=== PATIENT | female | born 1985 | race Caucasian/White ===

== ENCOUNTER → 2025-03-11 | Outpatient (CLI) | payer OTHER, SELFPAY ==
--- NOTE | 2025-03-11 13:50 | BI_ITS ---
EXAM: DIAG MAMM W/CAD, BILAT 03/11/2025 CLINICAL HISTORY: F, Age 39 y/o , MASS UPPER OUTER QUAD LEFT BREAST TECHNIQUE: Bilateral Diagnostic digital breast tomosynthesis with 2D and 3D images. Computer aided detection. COMPARISON: Baseline study. FINDINGS: TISSUE DENSITY: The breast tissue is extremely dense which lowers the sensitivity of mammography. Bilateral Breast Mammographic Findings: No significant masses, calcifications or other abnormalities are identified. With the patient's history of a palpable lump in the upper-outer quadrant of the left breast, targeted sonographic correlation recommended. BI/DIAG MAMM W/CAD, BILAT IMPRESSION: No mammographic abnormality is seen. OVERALL FINAL ASSESSMENT BI-RADS 0: INCOMPLETE - NEED ADDITIONAL IMAGING EVALUATION. RECOMMENDATION: Targeted sonographic correlation of the upper-outer quadrant of the left breast recommended. A letter with findings and recommendations will be mailed to the patient. Reading Location: [place] [id number]
--- NOTE | 2025-03-11 14:42 | US_ITS ---
PROCEDURE: Upper-outer quadrant. 03/11/2025 REASON FOR EXAM: LEFT BREAST MASS TECHNIQUE: BREAST LIMITED UNILATERAL COMPARISON: Prior mammogram done earlier in the day.. FINDINGS: Left breast ultrasound was targeted to the . Dense fibroglandular tissue. There is a 2.2 cm 1.4 cm x 0.7 cm well-defined hypoechoic nodule with a central linear density suggestive of a benign-appearing lymph node at the 1 o'clock position of the breast at 3 cm from the nipple. US/Breast Limited Unilateral IMPRESSION: Impression: Findings suggestive of benign-appearing lymph node at the 1 o'clock position of the breast at 3 cm from the nipple. Birads: BI-RADS 2: BENIGN. RECOMMEND ANNUAL MAMMOGRAPHIC SCREENING. Reading Location: [place] [id number]
--- OUTSIDE RECORDS SUMMARY | 2025-03-11 14:56 | XMS RPT_ITS | CCD ---
Author Organization [facility] Care Team Providers Care [employer] Name Role Phone Neelam Hull Unavailable Unavailable PROVIDER, UNKNOWN Unavailable Unavailable Polo Ryan Unavailable Unavailable PROVIDER, UNKNOWN Unavailable Unavailable Polo Ryan Unavailable Unavailable JIN CUMMINS Unavailable Unavailable Polo Ryan Primary Care Provider Polo Ryan MD Primary Care Provider Unavailable Primary Care Provider UnavailPolo Strauss MD Primary Care Provider Polo Ryan MD Primary Care Provider Assessment, Health Risk Referring Unavaila ble Assessment, Health Risk Attending Unavaila ble Unavailable Primary Care Provider Unavailabl e POLO RYAN Attending Unavailable POLO RYAN Primary Care Unavailable RA LEONG Attending Unavailable POLO RYAN Primary Care Unavailable POLO RYAN Attending Unavailable POLO RYAN Primary Care Unavailable POLO RYAN Attending Unavailable POLO RYAN Primary Care Unavailable Medications Current Medications Medication Drug Class(es) Dates Sig (Normalized) Sig (Original) acetaminophen 325 mg / HYDROcodone bitartrate 5 mg oral tablet (1 source) Opioid Agonist Start: 12-04-2019 End: 12-15-2019 take 1 tablet by mouth every six hours as needed for pain, then take 1 tablet by mouth as needed for pain HYDROcodone-aceta minophen (NORCO) 5-325 MG per tablet Indications: Anal fistula Take 1 tablet by mouth every 6 hours as needed for Pain for up to 11 days. Intended supply: 5 days. Take lowest dose possible to manage pain 42 tablet 0 12/04/2019 12/15/2019 Active amoxicillin 500 mg oral capsule (2 sources) Penicillin-class Antibacterial Start: 10-30-2023 End: 11-09-2023 take 1 capsule by mouth twice daily amoxicillin (AMOXIL) 500 mg capsule Indications: Exudative tonsillitis Take 1 capsule by mouth two times a day for 10 days. 20 capsule 0 10/30/2023 11/09/2023 Active Start: 05-12-2022 End: 05-22-2022 take 1 capsule by mouth twice daily amoxicillin (POLYMOX, AMOXIL) 500 mg capsule Indications: Exudative pharyngitis Take 1 capsule by mouth twice daily for 10 days. 20 capsule 0 05/12/2022 05/22/2022 Active Comment on above: Take 1 capsule by mo [facility] twice daily for 10 days. Take 1 capsule by [facility] two times a day for 10 days. 1 ml diphenhydrAMINE hydrochloride 50 mg/ml cartridge (1 source) Histamine-1 Receptor Antagonist Start: 12-04-19 End: 12-04-19 diphenhydrAMINE (BENADRYL) injection 12.5 mg escitalopram 20 mg oral tablet (20 sources) Serotonin Reuptake Inhibitor Start: 08-23-20 End: 10-07-19 take 1 tablet by mouth once daily escitalopram (Lexapro) 20 MG tablet Take 1 tablet (20 mg) by mouth daily. 90 tablet 1 10/07/2024 Active Start: 11-02-2019 take 1 tablet by cece once daily escitalopram (LEXAPRO) 20 MG tablet TAKE ONE TABLET BY MOUTH EVERY DAY 90 tablet 0 11/02/2019 Suspended Comment on above: Take 1 tablet by cece th. 2 ml fentaNYL 0.05 mg/ml injection (2 sources) Opioid Agonist Start: 12-04-2019 fentaNYL (SUBLIMAZE) injection 25 mcg Start: 12-04-2019 fentaNYL (SUBL IMAZE) injection 50 mcg 1 ml hydrALAZINE hydrochloride 20 mg/ml injection (1 source) Arteriolar Vasodilator Start: 12-04-2019 hydrALAZINE (APRESOLINE) injection 5 mg 1 ml HYDROmorphone hydrochloride 1 mg/ml cartridge (2 sources) Opioid Agonist Start: 12-04-2019 HYDROmorphone (DILAUDID) injection 0.5 mg Start: 12-04-2019 HYDROmorphone (DILAUDID) injection 0.25 mg 4 ml labetalol hydrochloride 5 mg/ml cartridge (1 source) beta-Adrenergic Lili Start: 12-04-2019 labetalol (NORMODYNE;TRANDATE) injection 5 mg 10 ml lidocaine hydrochloride 10 mg/ml injection (1 source) Antiarrhythmic, Amide Local Anesthetic Start: 12-04-2019 End: 12-04-2019 lidocaine PF 1 % injection 1 mL 1 ml meperidine hydrochloride 25 mg/ml cartridge (1 source) Opioid Agonist Start: 12-04-2019 meperidine (DEMEROL) injection 12.5 mg ofloxacin 3 mg/ml ophthalmic solution (1 source) Quinolone Antimicrobial Start: 02-05-2024 End: 02-12-2024 ofloxacin (Ocuflox) 0.3 % ophthalmic solution Indications: Bacterial conjunctivitis of left eye Administer 1 drop into the left eye in the morning and 1 drop at noon and 1 drop in the evening and 1 drop before bedtime. Do all this for 7 days. 10 mL 0 02/05/2024 02/12/2024 Active oxyCODONE (1 source) Opioid Agonist Start: 12-04-2019 End: 12-04-2019 oxyCODONE (ROXICODONE) immediate release tablet 5 mg 1 ml promethazine hydrochloride 25 mg/ml injection (1 source) Phenothiazine Start: 12-04-2019 End: 12-04-2019 promethazine (PHENERGAN) injection 6.25 mg psyllium (METAMUCIL) 28 % packet (1 source) Start: 12-04-2019 End: 12-19-2019 take 1 dose by mouth twice daily psyllium (METAMUCIL) 28 % packet Take 1 packet by mouth 2 times daily for 15 days Take with full glass of h20 or juice 30 packet 0 12/04/2019 12/19/2019 Active 3 ml sodium chloride 9 mg/ml injection (2 sources) Start: 12-04-2019 sodium chloride flush 0.9 % injection 10 mL Completed/Discontinued Medications Medication Drug Class(es) Dates Sig (Normalized) Sig (Original) acetaminophen 325 mg oral tablet (4 sources) Start: 02-10-2021 take 2 tablets by mouth every six hours as needed for pain acetaminophen (TYLENOL) 325 MG tablet Take 2 tablets by mouth every 6 hours as needed for Pain 60 tablet 1 02/10/2021 Suspended Start: 02-08-2021 End: 02-11-2021 take 650 mg by mouth every six hours, then take 4000 mg by mouth every twenty-four hours 650 mg, Oral, EVERY 6 HOURS, First dose on Sat02/08/21 at 2245 Maximum dose of acetaminophen is 4000 mg from all sources in 24 hours. Start: 02-08-2021 End: 02-08-2021 take 650 mg by mouth every four hours as needed for pain, then take 4000 mg by mouth every twenty-four hours as needed for pain 650 mg, Oral, EVERY 4 HOURS PRN, Pain Mild (1-3), Fever, Fever >100.5 F (38 C), Starting on Sat02/08/21 at 0403 Maximum dose of acetaminophen is 4000 mg from all sources in 24 hours. Labor and Delivery Start: 12-04-2019 End: 12-04-2019 acetaminophen (TYLENOL) tabl et 1,000 mg ALPRAZolam 0.5 mg oral tablet (5 sources) Benzodiazepine Start: 10-24-2023 End: 10-07-2024 ALPRAZolam (Xanax) 0.5 MG tablet Indications: Anxiety 1 tablet 1 hour prior to flight 5 tablet 10/24/2023 10/07/2024 Discontinued (Therapy completed) benzocaine 200 mg/ml / menthol 5 mg/ml topical spray (1 source) Standardized Chemical Allergen Start: 02-08-2021 End: 02-11-2021 Topical, PRN, Pain, Starting on Sat02/08/21 at 2226 Apply to perineal area. Patient is capable and may self administer at bedside. calcium chloride 0.0014 meq/ml / potassium chloride 0.004 meq/ml / sodium chloride 0.103 meq/ml / sodium lactate 0.028 meq/ml injectable solution (2 sources) Start: 02-08-2021 End: 02-08-2021 Intravenous, at 125 mL/hr, CONTINUOUS, Starting on Sat02/08/21 at 0430, Labor and Delivery Start: 12-04-2019 lactated ringe rs infusion celecoxib 400 mg oral capsule (1 source) Nonsteroidal Anti-inflammatory Drug Start: 12-04-2019 End: 12-04-2019 celecoxib (CELEBREX) capsule 400 mg Start: 12-04-2019 End: 12-04-2019 celecoxib (CELEBREX) capsule 400 mg docusate sodium 100 mg oral capsule (2 sources) Start: 02-08-2021 End: 02-11-2021 take 1 capsule by mouth twice daily as needed for constipation docusate sodium (COLACE, DULCOLAX) 100 MG CAPS Take 100 mg by mouth 2 times daily as needed for Constipation 60 capsule 1 02/10/2021 Suspended famotidine 20 mg oral tablet (1 source) Histamine-2 Receptor Antagonist Start: 12-04-2019 End: 12-04-2019 famotidine (PEPCID) tablet 20 mg Start: 12-04-2019 End: 12-04-2019 famotidine (PEPCID) tablet 2 0 mg gabapentin 100 mg oral capsule (1 source) Anti-epileptic Agent Start: 12-04-2019 End: 12-04-2019 gabapentin (NEURONTIN) capsule 100 mg Start: 12-04-2019 End: 12-04-2019 gabapentin (NEURONTIN) capsu le 100 mg ibuprofen 600 mg oral tablet (5 sources) Nonsteroidal Anti-inflammatory Drug Start: 02-08-2021 End: 02-11-2021 take 1 tablet by mouth every six hours as needed for pain ibuprofen (ADVIL;MOTRIN) 600 MG tablet Take 1 tablet by mouth every 6 hours as needed for Pain 60 tablet 1 02/10/2021 Suspended Start: 02-08-2021 take 600 mg by mouth once 600 mg, Oral, ONCE, On Sat02/08/21 at 0430, For 1 dose IMMEDIATE . Do not crush or chew. DO NOT GIVE IBUPROFEN PRIOR TO DELIVERY. Post Delivery Start: 12-20-2018 take 1 tablet by cece th every six hours ibuprofen (ADVIL;MOTRIN) 600 MG tablet Take 1 tablet by mouth every 6 hours 120 tablet 3 12/20/2018 Suspended lanolin 1000 mg/ml topical cream (1 source) Start: 02-08-2021 End: 02-11-2021 Topical, PRN, Dry Skin, nipple discomfort, Starting on Sat02/08/21 at 2226, levothyroxine sodium 0.05 mg oral tablet (2 sources) l-Thyroxine Start: 06-28-2020 End: 02-11-2021 take 50 ug by mouth once daily 50 mcg, Oral, DAILY, First dose on Sat02/08/21 at 0600 Tube feeding (TF) interaction, obtain physician order to manage, recommend holding TF for 30 minutes before and after dose. 2 ml ondansetron 2 mg/ml injection (2 sources) Serotonin-3 Receptor Antagonist Start: 02-08-2021 End: 02-11-2021 4 mg, Intravenous, EVERY 6 HOURS PRN, Nausea, Starting on Sat02/08/21 at 2226, Start: 12-04-2019 End: 12-04-2019 ondansetron (ZOFRAN) injecti on 4 mg oxytocin (PITOCIN) 10 unit bolus from the bag (1 source) Start: 02-08-2021 End: 02-11-2021 500 mL (30 Units), Intraveno us, Administer over 75 Minutes, TITRATED, Starting on Sat02/08/21 at 1900 For Immediate Post Use Only. Give after delivery of placenta. Bag 1 of 2: Bolus for bag to infuse at 999 ml/hour for 15 minutes (15 units in 250cc). After initial bolus then decrease rate to 250cc/hr for 1 hour. Then discontinue. Multiphase Phase of Care oxytoxin (PITOCIN) 30 units in 500 mL infusion (1 source) Start: 02-08-2021 End: 02-08-2021 oxytoxin (PITOCIN) 30 units in 500 mL infusion Twvxka-TsBjb-Ttlgr -FA-DHA w/oA (VITAPEARL) 30-1.4-200 MG CPCR (2 sources) Start: 06-29-2018 take 1 tablet by mouth once daily Dnaifo-OmKvl-Hcgsl-FA-DHA w/oA (VITAPEARL) 30-1.4-200 MG CPCR Take 1 tablet by mouth nightly 06/29/2018 Suspended Start: 06-29-2018 take 1 tablet by cece th once daily Hyptmp-FnUdd-Cxnas-FA-DHA w/oA (VITAPEAR L) 30-1.4-200 MG CPCR Take 1 tablet by mouth nightly 06/29/2018 Active Vit-Fe Fumarate-FA ( VITAMIN) 27-0.8 MG TABS (1 source) Vit-Fe Fumarate-FA ( VITAMIN) 27-0.8 MG TABS Take 1 tablet by mouth 0 Suspended simethicone 80 mg chewable tablet (1 source) Start: 02-08-2021 End: 02-11-2021 take 80 mg by mouth every six hours as needed 80 mg, Oral, EVERY 6 HOURS PRN, Cramping, Flatulence, Starting on Sat02/08/21 at 2226, witch veornica 500 mg/ml medicated pad (1 source) Start: 02-08-2021 End: 02-11-2021 Topical, PRN, Hemorrhoids, For perineal pain or discomfort, Starting on Sat02/08/21 at 2226 Apply to perineal area. Patient is capable and may self administer at bedside. Problems Active Problems Problem Classification Problem Date Documented Da te Episodic/Chronic Abdominal pain (2 sources) Pelvic and perineal pain; Translations: [Pelvic and perineal pain] Onset: 11-23-2017 Acute and chronic tonsillitis (1 source) Tonsillitis; Translations: [Acute tonsillitis, unspecified] 10-30-2023 Episodic Anxiety disorders (20 sources) Anxiety disorder, unspecified; Translations: [Anxiety] Onset: 06-13-2015 06-13-2015 Chronic Disorders of lipid metabolism (20 sources) Hypercholesterolem ia; Translations: [Pure hypercholesterolem ia, unspecified] Onset: 03-29-2022 07-05-2022 Chronic Mood disorders (20 sources) Depressive disorder; Translations: [Major depressive disorder, single episode, unspecified] Onset: 06-13-2015 11-16-2019 Chronic Other endocrine disorders (2 sources) Polycystic ovarian syndrome; Translations: [Polycystic ovarian syndrome] Onset: 11-24-2017 Chronic Other nervous system disorders (2 sources) Other chronic pain; Translations: [Other chronic pain] Onset: 11-24-2017 Chronic Other nutritional; endocrine; and metabolic disorders (16 sources) Obese class I; Translations: [Obesity, unspecified] Onset: 08-31-2020 08-31-2020 Chronic Other nutritional; endocrine; and metabolic disorders (1 source) Body mass index 30+ - obesity; Translations: [Body mass index (BMI) 31.0-31.9, adult] Chronic Other nutritional; endocrine; and metabolic disorders (1 source) Obesity; Translations: [Obesity, unspecified] Chronic Other upper respiratory disease (1 source) Nasal congestion; Translations: [Nasal congestion] Episodic Other upper respiratory infections (3 sources) Exudative pharyngitis; Translations: [Acute pharyngitis, unspecified] Episodic Thyroid disorders (2 sources) Hypothyroidism; Translations: [Hypothyroidism, unspecified] Onset: 05-12-2022 05-12-2022 Chronic Unclassified (2 sources) Medication Check; Translations: [Medication Check] Onset: 10-10-2023 Unclassified (2 sources) Health Maintenance; Translations: [Health Maintenance] Onset: 10-10-2023 Past or Other Problems Problem Classification Problem Date Documented Date Episodic/Chronic Administrative/social admission (2 sources) Conceived by in vitro fertilization; Translations: [ resulting from in vitro fertilization in second trimester] Onset: 08-04-2018 Resolved: 12-18-2018 12-18-2018 Anal and rectal conditions (20 sources) Anal abscess; Translations: [Other specified diseases of anus and rectum] Onset: 11-24-2017 Resolved: 12-18-2018 12-18-2018 Episodic Hemorrhoids (2 sources) Unspecified hemorrhoids; Translations: [Unspecified hemorrhoids] Onset: 11-23-2017 Episodic Hypertension complicating ; childbirth and the puerperium (3 sources) Transient hypertension of - not delivered; Translations: [Gestational [-induced] hypertension without significant proteinuria, third trimester] Resolved: 12-20-2018 12-20-2018 Episodic Inflammation; infection of eye (except that caused by tuberculosis or sexually transmitteddisease) (3 sources) Conjunctivitis of left eye caused by bacteria; Translations: [Unspecified conjunctivitis] Onset: 02-05-2024 02-05-2024 Episodic Mood disorders (14 sources) Major depressive disorder, single episode, unspecified; Translations: [Mood disorders] Onset: 04-01-2023 Resolved: 10-07-2024 04-01-2023 Other complications of ; puerperium affecting management of mother (3 sources) Indication for care AND/OR intervention in labor AND/OR delivery; Translations: [Complication of labor and delivery, unspecified] Onset: 12-17-2018 Resolved: 12-20-2018 12-20-2018 Episodic Other complications of (1 source) Conceived by in vitro fertilization; Translations: [Supervision of resulting from assisted reproductive technology, second trimester] Onset: 08-04-2018 Resolved: 12-18-2018 12-18-2018 Episodic Other and delivery including normal (4 sources) Vaginal delivery; Translations: [Encounter for full-term uncomplicated delivery] Onset: 12-18-2018 Resolved: 01-20-2020 12-18-2018 Episodic Other screening for suspected conditions (not mental disorders or infectious disease) (8 sources) Patient encounter status; Translations: [Encounter for other specified screening] Onset: 08-04-2018 Resolved: 12-18-2018 12-18-2018 Episodic Other skin disorders (2 sources) Localized swelling, mass and lump, trunk; Translations: [Localized swelling, mass and lump, trunk] Onset: 11-23-2017 Episodic Polyhydramnios and other problems of amniotic cavity (3 sources) Amniotic fluid leaking; Translations: [Premature rupture of membranes, unspecified as to length of time between rupture and onset of labor, unspecified weeks of gestation] Resolved: 12-20-2018 12-20-2018 Episodic Screening or history of mental health and substance abuse (2 sources) Personal history of nicotine dependence; Translations: [Personal history of nicotine dependence] Onset: 11-23-2017 Episodic Spondylosis; intervertebral disc disorders; other back problems (2 sources) Dorsalgia, unspecified; Translations: [Dorsalgia, unspecified] Onset: 11-24-2017 Episodic Unclassified (2 sources) Patient encounter status; Translations: [Encounter for anatomic survey] Onset: 08-04-2018 Resolved: 12-18-2018 12-18-2018 Results Test Name Value Interpretation Reference Range Facility Office Visiton 10-07-2024 Follow-up visit [id number] Sasha Jackson 1985 F Date Provider Department Center 10/07/2024 [id number] Family History Problem Relation Age of Onset Depression Mother High Blood Pressure Father Alcohol abuse Father Diabetes Maternal Grandfather Depression Maternal Grandmother Diabetes Maternal Grandmother Colon cancer Brother Family Status - Relation Status Age at Mother Alive Father Maternal Grandfather Maternal Grandmother Brother Level of Service:41356 [place] OFFICE/OUTPATIENT ESTABLISHED LOW MDM 20 MIN Reason for Visit and Comments: Anxiety [9] Depression [32] Hyperlipidemia [182] Medication Check [[id number]] - 6 month Health Maintenance [872] - Pap- 01/[address] Priscila Bustam[facility] Letter for School/Work [[id number]] - Stating pt is ok to work Normal [facility] Progress Noteon 10-07-2024 Progress Note Stable, diet controlled Normal [facility] Progress Note Remission, continue Lexapro 20 mg daily Normal [facility] Progress Note Remission, continue Lexapro 20 mg daily Normal [facility] Progress Note Patient verified by last name and date of . Normal [facility] Progress Note 10/07/2024 Susu Jackson (: 1985) is a 38 y.o. female , Established patient, here for evaluation of the following chief complaint(s): Anxiety, Depression, Hyperlipidemia, Medication Check (6 month), Health Maintenance (Pap- 01/[address] Priscila Bust[facility]ante [facility] ), and Letter for School/Work (Stating pt is ok to work ) ASSESSMENT/PLAN: 1. Recurrent major depressive disorder, in full remission (HCC) Assessment & Plan: Remission, continue Lexapro 20 mg daily 2. Anxiety Assessment & Plan: Remission, continue Lexapro 20 mg daily 3. Hypercholesterolemia Assessment & Plan: Stable, diet controlled Follow up in about 6 months (around 04/06/2025) for annual. SUBJECTIVE/OBJECTIVE: LOUISE Oneal comes in today for 6-month follow-up on her anxiety and depression she says she is doing very well on her current dose of Lexapro and she is not using her alprazolam anymore. She has a history of hypercholesterolemia but she has never been on medication. She also has starting a new as needed job and she needs another stating that she was examined in his disease-free and can do the job of the [employer]. Review of Systems Constitutional: Negative for chills and fever. Respiratory: Negative for shortness of breath. Cardiovascular: Negative for chest pain and palpitations. Gastrointestinal: Negative for abdominal pain, blood in stool, constipation and diarrhea. Genitourinary: Negative for dyspareunia, dysuria, frequency, hematuria and urgency. Neurological: Negative for weakness and numbness. Psychiatric/Behavioral: Negative for dysphoric mood. The patient is not nervous/anxious. Vitals: 10/07/24 1314 BP: 108/74 Pulse: 95 SpO2: 98% Weight: 211 lb (95.7 kg) Height: 5' 6 (1.676 m) Physical Exam Vitals and nursing note reviewed. Constitutional: General: She is not in acute distress. Appearance: Normal appearance. HENT: Head: Normocephalic. Right Ear: Tympanic membrane, ear canal and external ear normal. Left Ear: Tympanic membrane, ear canal and external ear normal. Mouth/Throat: Mouth: Mucous membranes are moist. Pharynx: Oropharynx is clear. Eyes: Extraocular Movements: Extraocular movements intact. Pupils: Pupils are equal, round, and reactive to light. Neck: Thyroid: No thyromegaly. Cardiovascular: Rate and Rhythm: Normal rate and regular rhythm. Heart sounds: Normal heart sounds. No murmur heard. Pulmonary: Effort: Pulmonary effort is normal. Breath sounds: Normal breath sounds. Abdominal: General: Bowel sounds are normal. Palpations: Abdomen is soft. Musculoskeletal: General: Normal range of motion. Cervical back: Normal range of motion. Lymphadenopathy: Cervical: No cervical adenopathy. Skin: General: Skin is warm and dry. Neurological: General: No focal deficit present. Mental Status: She is alert and oriented to person, place, and time. Psychiatric: Mood and Affect: Mood normal. An electronic signature was used to authenticate this note. Polo Ryan MD 10/07/2024 2:41 PM [facility] 36on 10-06-2024 36 lm to pre-visit plan for appointment with Dr Ryan on 10/07/24 1:30. Please ask patient to arrive 15 minutes early with Photo ID, insurance card Fasting: no Put call through to office for pvp [facility] 36on 04-20-2024 36 The STACY that we have scanned in on 10/10/23 was accidentally dated 10/10/22. I called Susu, she will come in to sign a new one. [facility] 36 Name of caller: Shraddha nicole Contact phone number: [phone] Relationship to Patient: [facility] Provider: Dr. Ryan Practice: [facility] Chief Complaint/Reason for Call: Arron called in to notify office they received a records request for patient's pap results but the release is from 2022. States they will need a new updated release sent over. Please Advise Best time of day caller can be reached: any Patient advised that office/PCP has 24-48 business hours to return their call: No [facility] Office Visiton 04-08-2024 Follow-up visit [id number] Sasha Jackson 1985 F Date Provider Department Center 04/08/2024 [id number] RYANBENYFaith [facility] Family History Problem Relation Age of Onset Depression Mother High Blood Pressure Father Alcohol abuse Father Diabetes Maternal Grandfather Depression Maternal Grandmother Diabetes Maternal Grandmother Colon cancer Brother Family Status - Relation Status Age at Mother Alive Father Maternal Grandfather Maternal Grandmother Brother Level of Service:61064 [place] PERIODIC PREVENTIVE MED EST PATIENT 18-39 YRS Reason for Visit and Comments: Annual Exam [83] Health Maintenance [872] - HIV/HEP C-declined DM SCREEN-today HEP B VAC-today COVID VAC-completed PHQ/HECTOR-completed PAP-completed at [facility] Progress Noteon 04-08-2024 Progress Note 5 pound weight loss, encouraged to continue with diet and exercise [facility] Progress Note Controlled, continue very strict low-fat low-cholesterol diet [facility] Progress Note Remission, continue Lexapro 20 mg daily [facility] Progress Note Remission, continue Lexapro 20 mg daily [facility] Progress Note PHQ/HECTOR MESSAGED VIA [facility] Health Maintenance Addressed with Patient at Visit: HIV/HEP C-declined DM SCREEN-today HEP B VAC-today COVID VAC-completed PHQ/HECTOR-completed PAP-completed 01/21/2024 at [facility] Progress Note 04/08/2024 Susu Jackson (: 1985) is a 38 y.o. female , Established patient, here for evaluation of the following chief complaint(s): Annual Exam and Health Maintenance (HIV/HEP C-declined/DM SCREEN-today/HEP B VAC-today/COVID VAC-completed/PHQ/HECTOR-co mpleted/PAP-completed at [facility]/) ASSESSMENT/PLAN: 1. Annual physical exam 2. Recurrent major depressive disorder, in full remission (HCC) Assessment & Plan: Remission, continue Lexapro 20 mg daily 3. Anxiety Assessment & Plan: Remission, continue Lexapro 20 mg daily 4. Hypercholesterolemia Assessment & Plan: Controlled, continue very strict low-fat low-cholesterol diet Orders: - Lipid panel 5. Class 1 obesity Assessment & Plan: 5 pound weight loss, encouraged to continue with diet and exercise 6. Screening for diabetes mellitus - Comprehensive metabolic panel Follow up in about 6 months (around 10/09/2024). SUBJECTIVE/OBJECTIVE: HPI Jm comes in today for her annual exam, she gets her well female exams done at her [employer]. Is also here for follow-up on her depression and anxiety which both seem to be in remission and her hyperlipidemia and we need to get updated lab work today. Review of Systems Constitutional: Negative for chills and fever. Respiratory: Negative for shortness of breath. Cardiovascular: Negative for chest pain and palpitations. Gastrointestinal: Negative for abdominal pain, blood in stool, constipation and diarrhea. Genitourinary: Negative for dyspareunia, dysuria, frequency, hematuria and urgency. Neurological: Negative for weakness and numbness. Psychiatric/Behavioral: Negative for dysphoric mood. The patient is not nervous/anxious. Vitals: 04/08/24 0826 BP: 127/83 Pulse: 81 Resp: 16 SpO2: 96% Weight: 217 lb (98.4 kg) Height: 5' 6 (1.676 m) Physical Exam Vitals and nursing note reviewed. Constitutional: General: She is not in acute distress. Appearance: Normal appearance. HENT: Head: Normocephalic. Right Ear: Tympanic membrane, ear canal and external ear normal. Left Ear: Tympanic membrane, ear canal and external ear normal. Mouth/Throat: Mouth: Mucous membranes are moist. Pharynx: Oropharynx is clear. Eyes: Extraocular Movements: Extraocular movements intact. Pupils: Pupils are equal, round, and reactive to light. Neck: Thyroid: No thyromegaly. Cardiovascular: Rate and Rhythm: Normal rate and regular rhythm. Heart sounds: Normal heart sounds. No murmur heard. Pulmonary: Effort: Pulmonary effort is normal. Breath sounds: Normal breath sounds. Abdominal: General: Bowel sounds are normal. Palpations: Abdomen is soft. Musculoskeletal: General: Normal range of motion. Cervical back: Normal range of motion. Lymphadenopathy: Cervical: No cervical adenopathy. Skin: General: Skin is warm and dry. Neurological: General: No focal deficit present. Mental Status: She is alert and oriented to person, place, and time. Psychiatric: Mood and Affect: Mood normal. An electronic signature was used to authenticate this note. Polo Ryan MD 04/08/2024 9:06 AM [facility] 36on 02-05-2024 36 S: Patient spoke wit h [facility] nurse regarding lt eye red with drainage B: Onset of symptoms/concern this morning A: patient states drainage is thick and yellow and the eye is painful. Patient denies fever, sore throat. She reports she has some runny nose and that her 3 year old has pink eye. R: Appt scheduled this morning with Ra. Patient advised of gently cleaning the eye and not sharing of towel. Patient understands care advice. No further needs at this time. Patient instructed to call back with new or worsening symptoms. Reason for Disposition Eye with yellow or green discharge or eyelashes stick together, but NO standing order to call in antibiotic eye drops (Exception: Alecia; continue triage.) Protocols used: Eye - Pus or [id number] [facility] Office Visiton 02-05-2024 Follow-up visit [id number] ManuelSasha Nicole 1985 F Date Provider Department Center 02/05/2024 [id number] LEONG [facility] Family History Problem Relation Age of Onset Depression Mother High Blood Pressure Father Alcohol abuse Father Diabetes Maternal Grandfather Depression Maternal Grandmother Diabetes Maternal Grandmother Colon cancer Brother Family Status - Relation Status Age at Mother Alive Father Maternal Grandfather Maternal Grandmother Brother Level of Service:17808 LA OFFICE/OUTPATIENT ESTABLISHED LOW MDM 20 MIN Reason for Visit and Comments: Eye Drainage [790482] - Thinks it is pink eye daughter recently had pink eye. Started Saturday. [facility] Progress Noteon 02-05-2024 Progress Note Patient verified by last name and . [facility] Progress Note 02/05/2024 Susu Jackson (: 1985) is a 38 y.o. female , Established patient, here for evaluation of the following chief complaint(s): Eye Drainage (Thinks it is pink eye daughter recently had pink eye. Started Saturday. ) ASSESSMENT/PLAN: 1. Bacterial conjunctivitis of left eye - ofloxacin (Ocuflox) 0.3 % ophthalmic solution; Administer 1 drop into the left eye in the morning and 1 drop at noon and 1 drop in the evening and 1 drop before bedtime. Do all this for 7 days., Starting Sat02/05/2024, Until Sat02/12/2024, Normal - Should be seen immediately by ophthalmology if severe eye pain, swelling, or visual disturbances occur. - Instructed to apply fresh, clean pillow cases, use good eye hygiene (separate rags for each eye), avoid touching eyes, wash hands frequently, and avoid use of eye makeup until symptoms improve. - Discussed signs and symptoms warranting follow up in the office- verbalized understanding. Follow up in 9 weeks (on 04/08/2024) for Next scheduled follow-up. SUBJECTIVE/OBJECTIVE: LOUISE Cristobal presents today with concerns of her left eye being red and experiencing yellow, thick drainage. Eye was crusted shut this morning. Symptoms started this morning and her 3 year old currently has pink eye. Denies recent trauma to the area. Does not wear contact lenses. Review of Systems Constitutional: Negative for chills and fever. HENT: Negative for ear pain and rhinorrhea. Eyes: Positive for discharge and redness. Respiratory: Negative for chest tightness, shortness of breath and wheezing. Cardiovascular: Negative for chest pain. Vitals: 02/05/24 1124 02/05/24 1135 BP: (!) 138/92 118/72 Pulse: 84 SpO2: 98% Weight: 223 lb 6.4 oz (101 kg) Height: 5' 6 (1.676 m) Body mass index is 36.06 kg/m?. Physical Exam Constitutional: General: She is not in acute distress. Appearance: She is not ill-appearing. HENT: Head: Normocephalic and atraumatic. Eyes: General: Left eye: Discharge (yellow) present. Conjunctiva/sclera: Left eye: Left conjunctiva is injected. Pulmonary: Effort: Pulmonary effort is normal. Neurological: Mental Status: She is alert. An electronic signature was used to authenticate this note. Ra Leong APRN - MONICA 02/05/2024 11:58 AM [facility] CNOVon 10-30-2023 CNOV Office Visit (WALKWA ) -------- SUSU JACKSON ([id number]) 1985 F Date Time Provider Department 10/30/23 12:40 PM OCTAVIO SCHAEFFER During your visit today, we recorded the following information about you: Temperature Pulse Blood pressure Weight 97.9 degrees 84/minute 104/81 100.7 kg Octavio Schaeffer APRN.PRINTED CIRCUIT BOARD DESIGNER 10/30/2023 1:23 PM Signed This note was created using BigFix[employer]. Subjective Susu Jackson is a 37 year old female. HPI by patient: Susu is a 36 year old presenting to the office with the complaint of sore throat Started approximately Associated symptoms include sore throat on R side, white spots on R tonsil (has tonsil stones), congestion, PND Denies any other concerns Covid Immunization Dates Overdue - Covid-19 Vaccine ( season) Overdue since 05/24/2023 04/14/2021 Imm Admin: COVID-19 original vaccine, age 12+ yr, monovalent (PFIZER-BIONTECH - PURPLE TOP) 03/18/2021 Imm Admin: COVID-19 original vaccine, age 12+ yr, monovalent (PFIZER-BIONTECH - PURPLE TOP) Sick contacts: no Smoking history/second hand smoke: no OTC nothing No antibiotic use in the last 60 days. ALLERGIES No Known Allergies No family history on file. Review of Systems Constitutional: Negative for chills and fever. HENT: Positive for postnasal drip and sore throat. Negative for congestion, ear pain and rhinorrhea. Respiratory: Negative for cough. Cardiovascular: Negative for chest pain. Allergic/Immunologic: Negative for immunocompromised state. Hematological: Negative for adenopathy. Objective BP 104/81 Pulse 84 Temp 36.6 ?C (97.9 ?F) Wt 100.7 kg (221 lb 14.3 oz) SpO2 99% BMI 35.81 kg/m? Physical Exam Vitals and nursing note reviewed. HENT: Right Ear: Tympanic membrane and ear canal normal. Left Ear: Tympanic membrane and ear canal normal. Nose: Congestion present. Mouth/Throat: Pharynx: Uvula midline. Posterior oropharyngeal erythema present. Tonsils: Tonsillar exudate present. Cardiovascular: Rate and Rhythm: Normal rate and regular rhythm. Heart sounds: Normal heart sounds. Pulmonary: Effort: Pulmonary effort is normal. Breath sounds: Normal breath sounds. Lymphadenopathy: Cervical: No cervical adenopathy. Skin: General: Skin is warm and dry. Neurological: Mental Status: She is alert and oriented to person, place, and time. Assessment and Plan ASSESSMENT/PLAN: 1. Exudative tonsillitis - ICD9: 463, ICD10: J03.90 (primary diagnosis) - Please see ENT for tonsil stones 2. Viral URI - ICD9: 465.9, ICD10: J06.9 - Discussed viral etiology and rationale for treatment. - Symptomatic treatment with prn analgesia - Supportive care with fluids and rest Octavio Schaeffer APRN.CNP Medical Decision Making: Problems: Moderate: New problem with uncertain prognosis Data: Unique source(s) for external note(s) reviewed: 1 Unique test(s) ordered: 1 Risk: Moderate: Drug management Medical Decision Making Level: 4 - Moderate Octavio Schaeffer APRN.CNP 10/30/2023 1:11 PM Signed -------- UPPER RESPIRATORY INFECTIONS Most cases are caused by viruses and most cases are mild, temporary, and harmless. Symptoms can last 2 to 3 weeks and can include: nasal congestion, sore throat, coughing, muscles aches, headaches, nausea, diarrhea, fatigue and fever. 1. Drink plenty of fluids. 2. Get lots of rest. 3. Avoid dehydrants such as caffeine and alcohol. 4. Nasal saline is an effective decongestant and be used frequently throughout the day. 5. To loosen phlegm and help coughing, drink plenty of fluids and using a humidifier. 6. For sore throats, it is ok to use cough drops, throat sprays, or gargling warm salt water. 7. Always cover your mouth when you cough or sneeze, and wash your hands frequently. Avoid crowded areas like shopping centers, movies while you are sick so you don't shredder picker a different virus, or infect others. 8. Avoid exposure to cigarettes or fumes. 9. Avoid irritants such as potpourri, dust, perfumes, scented candles and scented sprays 10. Air conditioning is an effective allergen and irritant avoidance strategy in the spring, summer and fall. 11. Honey is an effective cough suppressant. Try one tsp two to three times per day. 12. Mucinex every 12 hours with a full 10-12 ounces of water The below information is from [employer]: Antibiotics will rarely help an upper respiratory infections. Antibiotics lead to more resistant infections that are harder to treat. There is little to no benefit to taking antibiotics for most acute upper respiratory tract infections. Allergies As of Date: 10/30/2023 (No Known Allergies) Date Reviewed: 10/30/2023 Reviewed by: Charmaine Wilde MA - Fully Assessed Reason for Visit: Sore Throat (more content not included)... Normal [facility] STREP A MOLECULAR (POC)on Procedural Control Valid [facility] Strep A (POCT) Negative Negative [facility] Office Visiton 10-10-2023 Follow-up visit [id number] Sasha Jackson 1985 F Date Provider Department Center 10/10/2023 [id number] Family History Problem Relation Age of Onset Depression Mother High Blood Pressure Father Alcohol abuse Father Diabetes Maternal Grandfather Depression Maternal Grandmother Diabetes Maternal Grandmother Colon cancer Brother Family Status - Relation Status Age at Mother Alive Father Maternal Grandfather Maternal Grandmother Brother Level of Service:61445 LA OFFICE/OUTPATIENT ESTABLISHED LOW MDM 20 MIN Reason for Visit and Comments: Anxiety [9] Depression [32] Hyperlipidemia [182] Medication Check [5895145664] - 6 month Health Maintenance [872] - Hiv/hep c screening- refuse 3rd covid vaccine- not done Normal [facility] Progress Noteon 10-10-2023 Progress Note Controlled, continue low-fat low-cholesterol diet Normal [facility] Progress Note Remission, continue Lexapro 20 mg daily Normal [facility] Progress Note Remission, continue Lexapro 20 mg daily Normal [facility] Progress Note 10/10/2023 Susu Jackson (: 1985) is a 37 y.o. female , Established patient, here for evaluation of the following chief complaint(s): Anxiety, Depression, Hyperlipidemia, Medication Check (6 month), and Health Maintenance (Hiv/hep c screening- refuse/3rd covid vaccine- not done) ASSESSMENT/PLAN: 1. Recurrent major depressive disorder, in full remission (HCC) Assessment & Plan: Remission, continue Lexapro 20 mg daily 2. Anxiety Assessment & Plan: Remission, continue Lexapro 20 mg daily 3. Hypercholesterolemia Assessment & Plan: Controlled, continue low-fat low-cholesterol diet Follow up in about 6 months (around 04/09/2024). SUBJECTIVE/OBJECTIVE: LOUISE Oneal comes in today for 6-month follow-up on her anxiety and depression, she actually is doing very well she denies any problems. We also reviewed her labs from 6 months ago and her cholesterol was actually very good. Review of Systems Constitutional: Negative for chills and fever. Respiratory: Negative for shortness of breath. Cardiovascular: Negative for chest pain and palpitations. Gastrointestinal: Negative for abdominal pain, blood in stool, constipation and diarrhea. Genitourinary: Negative for dysuria, frequency, hematuria and urgency. Neurological: Negative for weakness and numbness. Psychiatric/Behavioral: Negative for dysphoric mood. The patient is not nervous/anxious. Vitals: 10/10/23 1309 BP: 88/60 Pulse: 83 SpO2: 98% Weight: 222 lb (101 kg) Height: 5' 6 (1.676 m) Physical Exam Vitals and nursing note reviewed. Constitutional: General: She is not in acute distress. Appearance: Normal appearance. HENT: Head: Normocephalic. Right Ear: Tympanic membrane, ear canal and external ear normal. Left Ear: Tympanic membrane, ear canal and external ear normal. Mouth/Throat: Mouth: Mucous membranes are moist. Pharynx: Oropharynx is clear. Eyes: Extraocular Movements: Extraocular movements intact. Pupils: Pupils are equal, round, and reactive to light. Cardiovascular: Rate and Rhythm: Normal rate and regular rhythm. Heart sounds: Normal heart sounds. No murmur heard. Pulmonary: Effort: Pulmonary effort is normal. Breath sounds: Normal breath sounds. Abdominal: General: Bowel sounds are normal. Palpations: Abdomen is soft. Musculoskeletal: General: Normal range of motion. Cervical back: Normal range of motion. Lymphadenopathy: Cervical: No cervical adenopathy. Skin: General: Skin is warm and dry. Neurological: General: No focal deficit present. Mental Status: She is alert and oriented to person, place, and time. Psychiatric: Mood and Affect: Mood normal. An electronic signature was used to authenticate this note. Polo Ryan MD 10/10/2023 1:38 PM Normal [facility] Progress Note Patient verified by last name and date of . Normal [facility] CBCOrdered By: Padmini Baker on 02-08-2021 Hematocrit (Bld) [Volume fraction] 39.4 % 35.0 - 47.0 % [facility] Phone: [phone] Hemoglobin.gastrointes tinal spec 1 Ql (Stl) 13.6 g/dL 11.7 - 16.0 g/dL [facility] Work Phone: [phone] Interpretation and review of laboratory results Abnormal [facility] Work Phone: [phone] MCH (RBC) [Entitic mass] 32.1 pg 26.0 - 34.0 pg [facility] Work Phone: [phone] MCHC (RBC) [Mass/Vol] 34.5 % 32.0 - 36.0 % [facility] Work Phone: [phone] MCV (RBC) [Entitic vol] 93.0 fL 79.0 - 98.0 fL [facility] Work Phone: [phone] Platelet distribution width (Bld) [Ratio] 13.7 % 11.5 - 14.5 % [facility] Work Phone: [phone] Platelet mean volume (Bld) [Entitic vol] 9.1 fL 7.4 - 10.4 fL [employer] Work Phone: [phone] Platelets (Bld) [#/Vol] 174 10*3/uL 140 - 440 10*3/uL [employer] Work Phone: [phone] RBC (Bld) [#/Vol] 4.23 10*6/uL 3.80 - 5.2 0 10*6/uL [employer] Work Phone: [phone] WBC (Bld) [#/Vol] 12.7 10*3/uL High 3.6 - 10.7 10*3/uL [employer] Work Phone: [phone] Test Performed by [facility], [address] [place] [id number] [facility] Work Phone: [phone] [facility] Work Phone: [phone] Hemogramon 02-08-2021 Erythrocyte distribution width (RBC) [Ratio] 13.7 % Normal 11.5-14.5 [facility] Comment on above: Performed By: #### H EMOG #### [facility] [employer] [address] Hematocrit (Bld) [Volume fraction] 39.4 % Normal 35.0-47.0 [facility] Comment on above: Performed By: #### H EMOG #### [address] Hemoglobin (Bld) [Mass/Vol] 13.6 g/dL Normal 11.7-16.0 [facility] Comment on above: Performed By: #### H EMOG #### [address] MCH (RBC) [Entitic mass] 32.1 pg Normal 26.0-34.0 [facility] Comment on above: Performed By: #### H EMOG #### [address] MCHC 34.5 % Normal 32.0-36.0 [facility] Comment on above: Performed By: #### H EMOG #### [facility] [address] [place] [address] MCV (RBC) [Entitic vol] 93.0 fL Normal 79.0-98.0 [facility] Comment on above: Performed By: #### H EMOG #### [address] [place] [address] Platelet mean volume (Bld) [Entitic vol] 9.1 fL Normal 7.4-10.4 [facility] Comment on above: Performed By: #### H EMOG #### [address] [place] [address] Platelets (Bld) [#/Vol] 174 10*3/uL Normal 140-440 [facility] Comment on above: Performed By: #### H EMOG #### [address] [address] [place] [address] RBC (Bld) [#/Vol] 4.23 10*6/uL Normal 3.80-5.20 [facility] Comment on above: Performed By: #### H EMOG #### [address] [address] [place] [address] WBC (Bld) [#/Vol] 12.7 10*3/uL High 3.6-10.7 [facility] Comment on above: Performed By: #### H EMOG #### [address] [address] [place] [address] TS GELon 02-08-2021 TS GEL ABO Group: O Rh, Gel: POS Antibody Screen Gel: NEG Normal [facility] Comment on above: Performed By: #### T SGL #### [facility] TYPE AND SCREENOrdered By: Cailin Baker on 02-08-2021 ABO Grouping O [facility] Work Phone: [phone] Rh Type Positive [facility] Work Phone: [phone] Test Performed by [facility], [address] [place] [address] [facility] Work Phone: [phone] [facility] Work Phone: [phone] GBS, External ResultOrdered By: Historical Provider on 01-17-2021 GBS, External Result Positive [facility] Work Phone: [phone] Labs confirmed with Sebastian Suarez RN [facility] Work Phone: [phone] [facility] Work Phone: [phone] ABO, External ResultOrdered By: Historical Provider on 07-18-2020 ABO, External Result O [facility] Work Phone: [phone] C. Trachomatis, External Res ultOrdered By: Historical Provider on 07-18-2020 C. Trachomatis, External Result Negative [facility] Work Phone: [phone] GBS, External ResultOrdered By: Historical Provider on 07-18-2020 GBS, External Result Positive [facility] Work Phone: [phone] HIV, External ResultOrdered By: Historical Provider on 07-18-2020 HIV, External Result Negative [facility] Work Phone: [phone] Hepatitis B, External Result Ordered By: Historical Provider on 07-18-2020 Hep B, External Result Negative [employer] Work Phone: [phone] N. Gonorrhoeae, External Res ultOrdered By: Historical Provider on 07-18-2020 N. Gonorrhoeae, External Result Negative [facility] Work Phone: [phone] No Panel InformationOrdered By: Historical Provider on 07-18-2020 [facility] Work Phone: [phone] [facility] Work Phone: [phone] RPR, External LabOrdered By: Historical Provider on 07-18-2020 RPR, External Result Non-Reactive [employer] Work Phone: [phone] Rh Factor, External ResultOr dered By: Historical Provider on 07-18-2020 Rh Factor, External Result Positive [facility] Work Phone: [phone] Rubella Titer, External Resu ltOrdered By: Historical Provider on 07-18-2020 Rubella Titer, External Result immune [facility] Work Phone: [phone] , urineon 0 Beta HCG ( test) Ql (U) Negative Negative NA [facility] [place], [place] Comment on above: is the mos t common reason for HCG in urine, although choriocarcinoma, hydatidiform mole, and certain nontropho- blastic malignancies also result in detectable urinary HCG levels. Sensitivity = 20mIU/mL. Test Performed by [facility], [address] [place] [id number] [place], [place] CT Abdomen/Pelvis w/ Contras ton 11-23-2017 CT Abdomen/Pelvis w/ Contrast Patient Name: SUSU JACKSON CT Exam Date/Time 11/23/2017 18:43:[address] Abdomen/Pelvis w/ IV Contrast (IV Onl Ordering Physician MD ARUNA, NEELAM Accession Number [id number] CPT4 Codes 34885 (CT Abdomen/Pelvis w/ IV Contrast (IV Onl), Q9967 () Reason For Exam ABSCESS, PELVIS Report HISTORY: Pain and pressure between labia and anus After oral and intravenous contrast sections performed through the abdomen and pelvis. Just included sections of lung bases are negative. Sections through the abdomen show no abnormality. Sections through the pelvis show what appears to be normal appendix. The uterus is normal in size. Both ovaries appear unremarkable with 2.3 cm cyst on the left. Full urinary bladder. Lumbar spine appears unremarkable. IMPRESSION: Question of a developing 2 cm possible superficial abscess in the perineum anterior to the anus Report Dictated on Final Dictating Physician: MD PRATER WILLIAM Signed Date and Time: 11/23/2017 7:02 pm Signed by: MD PRATER WILLIAM Transcribed Date and Time: 11/23/2017 7:03 Normal [facility] Vital Signs Date Time Vital Sign Value Performing Clinician Facility 10-07-2024 13:14-0500 Body height 167.6 cm Polo Ryan MD Work Phone: [facility] 10-07-2024 13:14-0500 Body mass index (BMI) [Ratio] 34.06 kg/m2 Polo Ryan MD Work Phone: [facility] 10-07-2024 13:14-0500 Body weight 95.71 kg Polo Ryan MD Work Phone: [facility] 10-07-2024 13:14-0500 Diastolic blood pressure 74 mm[Hg] Polo Ryan MD Work Phone: [employer] 10-07-2024 13:14-0500 Heart rate 95 /min Polo Ryan MD Work Phone: [facility] [employer] 10-07-2024 13:14-0500 SaO2% (BldA) [Mass fraction] 98 % Polo Ryan MD Work Phone: [facility] 10-07-2024 13:14-0500 Systolic blood pressure 108 mm[Hg] Polo Ryan MD Work Phone: [facility] [employer] 04-08-2024 08:26-0400 Body height 167.6 cm Polo Ryan MD Work Phone: [facility] [employer] 04-08-2024 08:26-0400 Body mass index (BMI) [Ratio] 35.02 kg/m2 Polo Ryan MD Work Phone: [facility] [employer] 04-08-2024 08:26-0400 Body weight 98.43 kg Polo Ryan MD Work Phone: [facility] 04-08-2024 08:26-0400 Diastolic blood pressure 83 mm[Hg] Polo Ryan MD Work Phone: [employer] [facility] [employer] 04-08-2024 08:26-0400 Heart rate 81 /min Polo Ryan MD Work Phone: [facility] [employer] 04-08-2024 08:26-0400 Respiratory rate 16 /min Polo Ryan MD Work Phone: [employer] [facility] [employer] 04-08-2024 08:26-0400 SaO2% (BldA) [Mass fraction] 96 % Polo Ryan MD Work Phone: [facility] [employer] 04-08-2024 08:26-0400 Systolic blood pressure 127 mm[Hg] Polo Ryan MD Work Phone: [facility] [employer] 02-05-2024 11:35-0400 Diastolic blood pressure 72 mm[Hg] Ra Kirby [employer] W[employer]ER - PRINTED [employer] BOARD DESIGNER Work Phone: [facility] [employer] 02-05-2024 11:35-0400 Systolic blood pressure 118 mm[Hg] Ra Leong [employer] W[employer]ER - [employer] BOARD DESIGNER Work Phone: [facility] 02-05-2024 11:24-0400 Body height 167.6 cm Ra Leong [employer]YSTER WASHER - [employer]ED [employer] BOARD DESIGNER Work Phone: [facility] 02-05-2024 11:24-0400 Body mass index (BMI) [Ratio] 36.06 kg/m2 Ra Leong [employer]YSTER WASHER - PRINTED [employer] BOARD DESIGNER Work Phone: [facility] [employer] 02-05-2024 11:24-0400 Body weight 101.33 kg Ra Leong OYSTER WASHER - [employer]INTED [employer] BOARD DESIGNER Work Phone: [facility] 02-05-2024 11:24-0400 Heart rate 84 /min Ra Leong OYSTER WASHER - [employer] BOARD DESIGNER Work Phone: [facility] 02-05-2024 11:24-0400 SaO2% (BldA) [Mass fraction] 98 % Ra Leong OYSTER WASHER - [employer]ED [employer] BOARD DESIGNER Work Phone: [facility] 10-30-2023 12:56-0500 Body temperature 97.9 [degF] Octavio Ball OYSTER WASHER.PRINTED CIRCUIT BOARD DESIGNER Work Phone: [facility] 10-30-2023 12:56-0500 Body weight 100.65 kg Octavio Ball OYSTER WASHER.[employer]ED [employer] BOARD DESIGNER Work Phone: [facility] 10-30-2023 12:56-0500 Diastolic blood pressure 81 mm[Hg] Octavio Ball OYSTER WASHER.[employer]ED [employer] BOARD DESIGNER Work Phone: [facility] 10-30-2023 12:56-0500 Heart rate 84 /min Octavio Ball OYSTER WASHER.PRINTED [employer] BOARD DESIGNER Work Phone: [facility] 10-30-2023 12:56-0500 SaO2% (BldA) [Mass fraction] 99 % Octavio Ball OYSTER WASHER.[employer]ED [employer] BOARD DESIGNER Work Phone: [facility] 10-30-2023 12:56-0500 Systolic blood pressure 104 mm[Hg] Octavio Ball OYSTER WASHER.PRINTED [employer] BOARD DESIGNER Work Phone: [facility] 10-10-2023 13:09-0500 Body height 167.6 cm Polo Ryan MD Work Phone: [employer] 10-10-2023 13:09-0500 Body mass index (BMI) [Ratio] 35.83 kg/m2 Polo Ryan MD Work Phone: [employer] [facility] [employer] 10-10-2023 13:09-0500 Body weight 100.7 kg Polo Ryan MD Work Phone: [employer] [facility] [employer] 10-10-2023 13:09-0500 Diastolic blood pressure 60 mm[Hg] Polo Ryan MD Work Phone: [employer] [facility] [employer] 10-10-2023 13:09-0500 Heart rate 83 /min Polo Ryan MD Work Phone: [email or web address] 10-10-2023 13:09-0500 SaO2% (BldA) [Mass fraction] 98 % Polo Ryan MD Work Phone: [email or web address] 10-10-2023 13:09-0500 Systolic blood pressure 88 mm[Hg] Polo Ryan MD Work Phone: [employer] [facility] [employer] 04-01-2023 09:25-0400 Body height 168.9 cm Polo Ryan MD Work Phone: [email or web address] 04-01-2023 09:25-0400 Body mass index (BMI) [Ratio] 34.66 kg/m2 Polo Ryan MD Work Phone: [email or web address] 04-01-2023 09:25-0400 Body weight 98.88 kg Polo Ryan MD Work Phone: [email or web address] 04-01-2023 09:25-0400 Diastolic blood pressure 74 mm[Hg] Polo Ryan MD Work Phone: [email or web address] 04-01-2023 09:25-0400 Heart rate 79 /min Polo Ryan MD Work Phone: [email or web address] 04-01-2023 09:25-0400 SaO2% (BldA) [Mass fraction] 97 % Polo Ryan MD Work Phone: [facility] [employer] 04-01-2023 09:25-0400 Systolic blood pressure 106 mm[Hg] Polo Ryan MD Work Phone: [facility] [employer] 10-02-2022 09:40-0500 Body height 167.6 cm Polo Ryan MD Work Phone: [facility] [employer] 10-02-2022 09:40-0500 Body mass index (BMI) [Ratio] 33.02 kg/m2 Polo Ryan MD Work Phone: [facility] [employer] 10-02-2022 09:40-0500 Body weight 92.81 kg Polo Ryan MD Work Phone: [facility] [employer] [employer] 10-02-2022 09:40-0500 Diastolic blood pressure 65 mm[Hg] Polo Ryan MD Work Phone: [facility] [employer] [employer] 10-02-2022 09:40-0500 Heart rate 84 /min Polo Ryan MD Work Phone: [facility] [employer] 10-02-2022 09:40-0500 Systolic blood pressure 100 mm[Hg] Polo Ryan MD Work Phone: [facility] [employer] 07-25-2022 14:00-0400 Body height 168.9 cm Heather Avila MD Work Phone: [facility] [employer] 07-25-2022 14:00-0400 Body mass index (BMI) [Ratio] 31.35 kg/m2 Heather Avila MD Work Phone: [employer] [facility] [employer] 07-25-2022 14:00-0400 Body weight 89.45 kg Heather Avila MD Work Phone: [facility] [employer] 07-25-2022 14:00-0400 Diastolic blood pressure 73 mm[Hg] Heather Avila MD Work Phone: [facility] [employer] 07-25-2022 14:00-0400 Heart rate 73 /min Heather Avila MD Work Phone: [facility] 07-25-2022 14:00-0400 Systolic blood pressure 107 mm[Hg] Heather Avila MD Work Phone: [facility] 05-12-2022 08:30-0400 Body height 167.6 cm Heidi Wormald PA-C Work Phone: [facility] 05-12-2022 08:30-0400 Body temperature 97.5 [degF] Heidi Wormald PA-C Work Phone: [facility] 05-12-2022 08:30-0400 Body weight 84.82 kg Heidi Wormald PA-C Work Phone: [facility] 05-12-2022 08:30-0400 Diastolic blood pressure 70 mm[Hg] Heidi Wormald PA-C Work Phone: [facility] 05-12-2022 08:30-0400 Heart rate 74 /min Heidi Wormald PA-C Work Phone: [facility] 05-12-2022 08:30-0400 Respiratory rate 16 /min Heidi Wormald PA-C Work Phone: [facility] 05-12-2022 08:30-0400 SaO2% (BldA) [Mass fraction] 98 % Heidi Wormald PA-C Work Phone: [facility] 05-12-2022 08:30-0400 Systolic blood pressure 108 mm[Hg] Heidi Wormald PA-C Work Phone: [facility] 02-10-2021 20:12-0400 Body temperature 98.01 [degF] Priscila Green MD Work Phone: [facility] Work Phone: 02-10-2021 20:12-0400 Diastolic blood pressure 66 mm[Hg] Priscila Green MD Work Phone: [facility] Work Phone: 02-10-2021 20:12-0400 Heart rate 87 /min Priscila Green MD Work Phone: [facility] Work Phone: 02-10-2021 20:12-0400 Respiratory rate 16 /min Priscila Green MD Work Phone: [facility] Work Phone: 02-10-2021 20:12-0400 SaO2% (BldA) [Mass fraction] 97 % Priscila Green MD Work Phone: [facility] Work Phone: 02-10-2021 20:12-0400 Systolic blood pressure 100 mm[Hg] Priscila Green MD Work Phone: [facility] Work Phone: 02-08-2021 04:06-0400 Body height 167.6 cm Priscila Green MD Work Phone: [facility] Work Phone: 02-08-2021 04:06-0400 Body mass index (BMI) [Ratio] 38.74 kg/m2 Priscila Green MD Work Phone: [facility] Work Phone: 02-08-2021 04:06-0400 Body weight 108.86 kg Priscila Green MD Work Phone: [facility] Work Phone: 12-04-2019 13:00-0400 Body Temperature 96.69 [degF] [facility] [place] 12-04-2019 12:45-0400 BP Diastolic 54 mm[Hg] [facility] , [place] 12-04-2019 12:45-0400 BP Systolic 111 mm[Hg] [facility] , [place] 12-04-2019 12:45-0400 Pulse (Heart Rate) 66 /min [facility], [place] 12-04-2019 12:45-0400 Pulse Oximetry 100 % [facility] [place] 12-04-2019 12:45-0400 Respiratory Rate 16 /[place] 12-04-2019 10:20-0400 BMI (Body Mass Index) 32.77 kg/m2 [facility] [place] 12-04-2019 10:20-0400 Body weight 92.08 kg [place] 12-04-2019 10:20-0400 Height 167.6 cm [place] 11-27-2019 11:28-0500 BMI (Body Mass Index) 31.79 kg/m2 [place] 11-27-2019 11:28-0500 Body Temperature 97.59 [degF] [place] 11-27-2019 11:28-0500 Body weight 92.08 kg [place] 11-27-2019 11:28-0500 BP Diastolic 68 mm[Hg] [place], [place] 11-27-2019 11:28-0500 BP Systolic 102 mm[Hg] [place] 11-27-2019 11:28-0500 Height 170.2 cm [place] 11-27-2019 11:28-0500 Pulse (Heart Rate) 69 /min [place], [place] 11-27-2019 11:28-0500 Pulse Oximetry 97 % [place] 11-27-2019 11:28-0500 Respiratory Rate 16 /min [place], [place] Encounters Encounter Date Encounter Type Care Provider Facility Start: 10-07-2024 End: 10-07-2024 Office outpatient visit 15 minutes Polo Ryan MD Work Phone: [facility] Comment on above: Recurrent major depr essive disorder, in full remission (HCC) (Primary Dx); Anxiety; Hypercholesterolemia Start: 10-07-2024 End: 10-07-20[facility] Start: 04-08-2024 End: 04-08-2024 Patient encounter procedure Polo Ryan MD Work Phone: [facility] [employer] Work Phone: Start: 04-08-2024 End: 04-08-2024 Periodic preventive med est patient 18-39 yrs Polo Ryan MD Work Phone: [facility] Comment on above: Annual physical exam (Primary Dx); Recurrent major depressive disorder, in full remission (HCC); Anxiety; Hypercholesterolemia; Class 1 obesity; Screening for diabetes mellitus Start: 04-08-2024 End: 04-08-[address] [facility] Start: 04-08-2024 End: 04-08-2024 Encounter for general adult medical examination without abnormal findings [facility] Start: 02-05-2024 End: 02-05-2024 ambulatory Wanda Plummer RN [facility] Clinical Communication Start: 02-05-2024 Patient encounter procedure Wanda Plummer RN [facility] Start: 02-05-2024 End: 02-05-2024 Office outpatient visit 15 minutes Ra Leong APRN - PRINTED CIRCUIT BOARD DESIGNER Work Phone: [facility] Comment on above: Bacterial conjunctiv itis of left eye (Primary Dx) Start: 10-30-2023 End: 10-30-2023 ambulatory Facility:[facility] Start: 10-30-2023 End: 10-30-2023 Office outpatient visit 15 minutes Octavio Schaeffer APRN.PRINTED CIRCUIT BOARD DESIGNER Work Phone: [facility] Comment on above: Exudative tonsilliti s (Primary Dx); Viral URI Start: 10-10-2023 End: 10-10-2023 Office outpatient visit 15 minutes Polo Ryan MD Work Phone: [facility] Comment on above: Recurrent major depr essive disorder, in full remission (HCC) (Primary Dx); Anxiety; Hypercholesterolemia Start: 10-10-2023 End: 10-10-[address] [facility] Start: 08-12-2023 ambulatory Health Risk Assessment Facility:[facility] Start: 04-01-2023 End: 04-01-2023 Patient encounter procedure Polo Ryan MD Work Phone: [facility] Work Phone: Start: 04-01-2023 End: 04-01-2023 Periodic preventive med est patient 18-39 yrs Polo Ryan MD Work Phone: [facility] Comment on above: Annual physical exam (Primary Dx); Recurrent major depressive disorder, in full remission (HCC); Hypercholesterolemia; Anxiety; Encounter for screening for diabetes mellitus Start: 10-02-2022 End: 10-02-2022 Office outpatient visit 25 minutes Polo Ryan MD Work Phone: [facility] Comment on above: Recurrent major depr essive disorder, in full remission (HCC) (Primary Dx); Anxiety; Hypercholesterolemia Start: 07-25-2022 End: 07-25-2022 Office outpatient new 45 minutes Heather Avila MD Work Phone: [facility] [place] Comment on above: Other depression (Pr imary Dx); BMI 31.0-31.9,adult; Class 1 obesity without serious comorbidity with body mass index (BMI) of 31.0 to 31.9 in adult, unspecified obesity type Start: 05-12-2022 End: 05-12-2022 Patient encounter procedure Heidi Lozano PA-C Work Phone: [facility] Comment on above: Exudative pharyngiti s (Primary Dx); Sore throat; Nasal congestion Start: 02-08-2021 End: 02-10-2021 Evaluation and management of inpatient Priscila Green MD Work Phone: [facility] Start: 01-20-2020 End: 01-20-2020 Gynecological examination normal Priscila Green MD Work Phone: [facility] Work Phone: Start: 01-20-2020 End: 01-20-2020 examination finding Priscila Green MD Work Phone: [facility] Work Phone: Start: 12-04-2019 End: 12-04-2019 Subsequent hospital visit by physician Clem Tran Work Phone: [facility] General Surgery Comment on above: Anal fistula (Primar y Dx) Start: 11-27-2019 End: 11-27-2019 Subsequent hospital visit by physician Clem Tran Work Phone: [facility] Pre-Admit Testing Comment on above: Arrived Start: 11-24-2017 Emergency department patient visit UNKNOWN PROVIDER [facility] Start: 11-23-2017 Emergency department patient visit Neelam Jamesyuliana [facility] Procedures Date Procedure Procedure Detail Performing Clinician Start: 04-08-2024 Lipid 1996 panel - S artur or Plasma Polo Ryan MD Work Phone: Start: 10-30-2023 STREP A MOLECULAR (POC) [facility] Provider Start: 03-29-2022 Lipid 1996 panel - S artur or Plasma Polo Ryan MD Work Phone: Start: 03-23-2021 Microscopic observat ion [Identifier] in Cervix by Cyto stain Heather Avila MD Work Phone: Start: 02-08-2021 Antibody screen Priscila Salcido MD Work Phone: Start: 02-08-2021 Blood count complete automated Padmini Baker MD Work Phone: Start: 02-08-2021 Blood typing serologic abo Padmini Baker MD Work Phone: Start: 01-17-2021 GBS, EXTERNAL RESULT Gunnar maddox Provider Start: 07-18-2020 ABO, EXTERNAL RESULT Hi anumical Provider Start: 07-18-2020 C. TRACHOMATIS, EXTE RNAL RESULT Historical Provider Start: 07-18-2020 GBS, EXTERNAL RESULT Hi varsha Provider Start: 07-18-2020 HEPATITIS B, EXTERNA L RESULT Historical Provider Start: 07-18-2020 HIV, EXTERNAL RESULT Gunnar maddox Provider Start: 07-18-2020 N. GONORRHOEAE, EXTE RNAL RESULT Historical Provider Start: 07-18-2020 RH FACTOR, EXTERNAL RESULT Historical Provider Start: 07-18-2020 RPR, EXTERNAL RESULT Hi storical Provider Start: 07-18-2020 RUBELLA TITER, EXTER NAL RESULT Historical Provider Start: 12-04-2019 OPERATIVE REPORT 3m Sca nning Start: 12-04-2019 Urine test visual color cmprsn theresa Kitchen Work Phone: Plan of Treatment Date Care Activity Detail Author Start: 2061 RSV Immunization for Adults (1 - 1-dose 75+ series) RSV Immunization for Adults (1 - 1-dose 75+ series) [facility] Start: 2046 RSV Immunization aged 60 or older (1 - 1-dose 60+ series) RSV Immunization aged 60 or older (1 - 1-dose 60+ series) [facility] Start: 2036 Shingles Vaccine (1 of 2) Shingles Vaccine (1 of 2) [place], [place] Start: 2036 Zoster Vaccines (1 of 2) Zoster Vaccines (1 of 2) [facility] Start: 11-15-2030 DTaP/Tdap/Td vaccine (4 - Td) DTaP/Tdap/Td vaccine (4 - Td) [facility] Work Phone: Start: 11-15-2030 DTaP/Tdap/Td Vaccines (4 - Td or Tdap) DTaP/Tdap/Td Vaccines (4 - Td or Tdap) [facility] Start: 11-15-2030 Urine microalbumin profile DTaP,Tdap,Td Vaccine (4 - Td or Tdap) [facility] Start: 04-08-2029 Lipid panel Lipid Panel [facility] Start: 10-21-2028 DTaP/Tdap/Td vaccine (3 - Td) DTaP/Tdap/Td vaccine (3 - Td) [place], [place] Start: 03-29-2027 Lipid panel Lipid Panel [facility] Start: 04-06-2025 Depression Monitoring Depression Monitoring [facility] Start: 10-08-2024 End: 10-08-2024 Patient encounter procedure 10/08/2024 8:45 AM EST Office Visit [facility] [address] [place] [address] Polo Ryan MD [address] [place] [address] [place] [address] [facility] Start: 05-24-2024 Influenza vaccination Influenza Vaccine (#1) [facility] Start: 04-09-2024 Depression Monitoring Depression Monitoring [facility] Start: 04-09-2024 Depresssion Monitoring Depresssion Monitoring [facility] Start: 04-08-2024 End: 04-08-2025 Comprehensive metabolic 1998 panel - Serum or Plasma Comprehensive metabolic panel Lab Routine Screening for diabetes mellitus Expected: 04/08/2024 (Approximate), Expires: 04/08/2025 [facility] Work Phone: Comment on above: Expected: 04/08/2024 (Approximate), Expi res: 04/08/2025 Start: 04-08-2024 End: 04-08-2025 Lipid 1996 panel - Serum or Plasma Lipid panel Lab Routine Hypercholesterolemia Expected: 04/08/2024 (Approximate), Expires: 04/08/2025 [facility] Comment on above: Expected: 04/08/2024 (Approximate), Expi res: 04/08/2025 Start: 04-08-2024 End: 04-08-2024 Patient encounter procedure 04/08/2024 8:30 AM EDT Office Visit [address] [place] [address] Polo Ryan MD [address] [place] [address] [place] [address] [facility] Start: 04-01-2024 Hepatitis B Vaccines (2 of 3 - 19+ 3-dose series) Hepatitis B Vaccines (2 of 3 - 19+ 3-dose series) [facility] Comment on above: Postponed from 05/05/2014 (Patient Refus ed) Start: 03-23-2024 Screening for malignant neoplasm of cervix [facility] Start: 10-02-2023 COVID-19 Vaccine (3 - Booster for Pfizer series) COVID-19 Vaccine (3 - Booster for Pfizer series) [facility] Comment on above: Postponed from 06/09/2021 (Patient Refus ed) Start: 10-02-2023 Depresssion Monitoring Depresssion Monitoring [facility] Start: 10-02-2023 Hepatitis C screening Hepatitis C Screening [facility] Comment on above: Postponed from 2004 (Patient Refus ed) Start: 10-02-2023 HIV screening HIV Screening [facility] Comment on above: Postponed from 1986 (Patient Refus ed) Start: 10-02-2023 End: 10-02-2023 Patient encounter procedure 10/02/2023 8:15 AM EST Office Visit [facility] [address] [place] [id number] Polo Ryan MD [address] [place] [address] [place] [address] [facility] Start: 05-24-2023 COVID-19 Vaccine ( season) COVID-19 Vaccine ( season) [facility] Start: 05-24-2023 Influenza vaccination Influenza Vaccine (#1) [facility] Start: 04-01-2023 End: 04-01-2024 Comprehensive metabolic 1998 panel - Serum or Plasma Comprehensive metabolic panel Lab Routine Encounter for screening for diabetes mellitus Expected: 04/01/2023 (Approximate), Expires: 04/01/2024 [facility] Comment on above: Expected: 04/01/2023 (Approximate), Expi res: 04/01/2024 Start: 04-01-2023 Depresssion Monitoring Depresssion Monitoring [facility] Start: 04-01-2023 End: 04-01-2024 Lipid 1996 panel - Serum or Plasma Lipid panel Lab Routine Hypercholesterolemia Expected: 04/01/2023 (Approximate), Expires: 04/01/2024 [facility] Work Phone: Comment on above: Expected: 04/01/2023 (Approximate), Expi res: 04/01/2024 Start: 04-01-2023 End: 04-01-2023 Patient encounter procedure 04/01/2023 Office Visit Family Medicine Polo Ryan MD [address] [place] [address] [facility] Start: 05-24-2022 Influenza vaccination INFLUENZA (#1) [facility] Start: 09-14-2021 COVID-19 VACCINE (3 - Booster for Pfizer series) COVID-19 VACCINE (3 - Booster for Pfizer series) [facility] Start: 03-01-2021 End: 03-01-2021 Patient encounter procedure 03/01/2021 Office Visit Family Medicine Polo Ryan MD [address] [place] [address] [phone] [facility] Start: 12-04-2019 End: 12-04-2019 Appointment 12/04/2019 Appointment General Surgery Clem Tran MD [address] [place] [address] [phone] [facility] General Surgery Start: 2016 HPV TESTING HPV TESTING [facility] Start: 2016 Screening for malignant neoplasm of cervix [facility] Start: 05-05-2014 Hepatitis B Vaccines (2 of 3 - 3-dose series) Hepatitis B Vaccines (2 of 3 - 3-dose series) [facility] Start: 05-05-2014 MMR Vaccines (1 of 1 - Standard series) MMR Vaccines (1 of 1 - Standard series) [facility] Start: 11-22-2007 Cervical cancer screen Cervical cancer screen [place], [place] Start: 11-22-2007 PAP TESTING PAP TESTING [facility] Start: 11-22-2007 Screening for malignant neoplasm of cervix [facility] Start: 2005 Urine microalbumin profile DTAP,TDAP,TD (1 - Tdap) [facility] Start: 2004 ANNUAL PCP TEAM CHRONIC DISEASE VISIT ANNUAL PCP TEAM CHRONIC DISEASE VISIT [facility] Start: 2004 Diabetes mellitus screening Diabetes Screening [facility] Start: 2004 HEPATITIS C SCREENING HEPATITIS C SCREENING [facility] Start: 2004 Hepatitis C screening Hepatitis C Screening [facility]: 2004 HIV SCREENING HIV SCREENING [facility] Start: 2004 HIV screening HIV Screening [facility] Start: 1998 COVID-19 Vaccine (1) COVID-19 Vaccine (1) [facility] Work Phone: Start: 1986 HEPATITIS B (1 of 3 - 3-dose series) HEPATITIS B (1 of 3 - 3-dose series) [facility] Start: 1986 Hepatitis B Vaccine (1 of 3 - 3-dose series) Hepatitis B Vaccine (1 of 3 - 3-dose series) [facility] Start: 1986 Hepatitis C screening Hepatitis C screen [facility] Work Phone: Start: 1986 HIV screening HIV Screening [facility] End: 12-04-2019 Blood glucose - POCT Blood glucose - POCT Point o f Care Testing STAT One Time for 1 Occurrences starting 12/04/2019 until 12/04/2019 [facility] One Time for 1 Occurrences starting 11/21 until 12/04/2019 End: 12-04-2019 Creatinine [Mass/Vol] Creatinine, serum Lab STAT One Time for 1 Occurrences starting 12/04/2019 until 12/04/2019 [facility] Comment on above: One Time for 1 Occurrences starting 11/21 until 12/04/2019 Incentive spirometry Incentive s pirometry Respiratory Care Routine Q1H PRN until discontinued starting 12/04/2019 [facility] [place] Comment on above: Q1H PRN until discontinued starting 11/21 Initiate Oxygen Therapy Protocol Initiate Oxygen Therapy Protocol Respiratory Care Routine Daily until discontinued starting 12/04/2019 [facility] [place] Comment on above: Daily until discontinued starting 2019 Phase I & II - meter ed glucose Phase I & II - metered glucose Point of Care Testing Routine As Needed until discontinued starting 12/04/2019 [facility] on above: As Needed until discontinued starting End: 12-04-2019 Potassium w/ Reflex to Magnesium Potassium w/ Reflex to Magnesium Lab Routine One Time for 1 Occurrences starting 12/04/2019 until 12/04/2019 [facility] Comment on above: One Time for 1 Occurrences starting 11/21 until 12/04/2019 End: 12-04-2019 Protime-INR Protime-INR Lab STAT One Juvencio e for 1 Occurrences starting 12/04/2019 until 12/04/2019 [facility] Comment on above: One Time for 1 Occurrences starting 11/21 until 12/04/2019 End: 12-04-2019 Pulse Oximetry Spot Check Pulse Oximetry Spot Check Respiratory Care Routine One Time for 1 Occurrences starting 12/04/2019 until 12/04/2019 [facility] Comment on above: One Time for 1 Occurrences starting 11/21 until 12/04/2019 Immunizations Immunization Date Immunization Notes Care Provider [facility] 08-04-2024 influenza virus vaccine, unspecified formulation Polo Ryan MD Work Phone: [facility] 08-12-2023 influenza, injectabl e, quadrivalent, preservative free Polo Ryan MD Work Phone: [facility] 08-12-2023 influenza virus vaccine, unspecified formulation Polo Ryan MD Work Phone: [facility] 10-02-2022 Seasonal, quadrivalent, recombinant, injectable influenza vaccine, preservative free Polo Ryan MD Work Phone: [facility] 10-02-2022 influenza virus vaccine, unspecified formulation Polo Ryan MD Work Phone: [facility] 10-05-2021 influenza, injectabl e, quadrivalent, preservative free Polo Ryan MD Work Phone: [facility] 04-14-2021 Pfizer SARS-CoV-2 Vaccination Polo Ryan MD Work Phone: [facility] 11-15-2020 tetanus toxoid, reduced diphtheria toxoid, and acellular pertussis vaccine, adsorbed Priscila Green MD Work Phone: [facility] Work Phone: 08-23-2020 influenza virus vaccine, unspecified formulation Priscila Green MD Work Phone: [facility] 11-16-2019 influenza virus vaccine, unspecified formulation Priscila Green MD Work Phone: [facility] Work Phone: 11-16-2019 influenza, injectabl e, quadrivalent, contains preservative [facility] 10-21-2018 tetanus toxoid, reduced diphtheria toxoid, and acellular pertussis vaccine, adsorbed [facility] 06-24-2018 influenza virus vaccine, unspecified formulation [facility], [place] 10-29-2015 Influenza Vaccine, unspecified formulation [facility], [place] 10-29-2015 influenza virus vaccine, unspecified formulation [facility], [place] 04-13-2014 tuberculin skin test ; purified protein derivative solution, intradermal [facility], [place] 04-07-2014 hepatitis B vaccine, adult dosage Polo Ryan MD Work Phone: [facility] 04-07-2014 hepatitis B vaccine, pediatric or pediatric/adolescent dosage [facility] 04-07-2014 hepatitis B vaccine, unspecified formulation [facility], [place] 04-07-2014 varicella virus vaccine [facility] 03-29-2014 tetanus toxoid, reduced diphtheria toxoid, and acellular pertussis vaccine, adsorbed [facility] 03-29-2014 tuberculin skin test ; purified protein derivative solution, intradermal [facility], [place] 11-22-1987 measles, mumps and rubella virus vaccine Polo Ryan MD Work Phone: [facility] NEGATED: Highlighted row has not occurred!02-10-2021 measles, mumps and rubella virus vaccine Priscila Green MD Work Phone: [facility] Work Phone: NEGATED: Highlighted row has not occurred!02-10-2021 tetanus toxoid, reduced diphtheria toxoid, and acellular pertussis vaccine, adsorbed Priscila Green MD Work Phone: [facility] Work Phone: NEGATED: Highlighted row has not occurred!12-20-2018 measles, mumps and rubella virus [facility] Comment on above: Deferred: - rubella immune NEGATED: Highlighted row has not occurred!12-20-2018 tetanus toxoid, reduced diphtheria toxoid, and acellular pertussis vaccine, adsorbed [facility] Comment on above: Deferred: - received during Payers Date Payer Category Payer Commercial Managed C are - HMO AEGENE SHARMA [id number] 2024 Private Health Insurance HANNY SHARMA [id number] 2024-Present [address] [place] [address] Commercial [id number] 2024 Private Health Insurance [id number] 2023 Self-pay 2019 Unknown 2016 Unknown [employer] [address] xxxxxxxxx 2016-Present [phone] [address] [place] [address] xxxxxxxxx [id number] 2016 Unknown [id number] Social History Date Type Detail Facility Start: 11-27-2019 End: 04-08-2024 Tobacco smoking status NHIS [facility] End: 09-23-2016 History of tobacco use Current smoker [facility] ANUS[facility] DURAN End: 09-23-2016 History of tobacco use Cigarette Smoker [facility] ANUSHA DURAN Start: 11-27-2019 End: 10-07-2024 Cigarettes smoked current (pack per day) - [facility]orted [facility] Start: 11-27-2019 End: 12-04-2019 Alcohol intake Current non-drinker of alcohol (finding) [facility] Start: 1985 [facility] Start: 02-08-2021 End: 04-08-2024 Tobacco use and exposure Never used [facility] Start: 02-08-2021 End: 10-07-2024 Alcohol intake Ex-drinker (finding) [facility] Work Phone: Start: 05-02-2022 End: 04-01-2023 Exposure to SARS-CoV-2 (event) Not sure [facility] consumption unknown [facility] Start: 04-01-2023 End: 10-07-2024 Tobacco use panel [facility] How hard is it for y ou to pay for the very basics like food, housing, medical care, and heating Not hard at all [facility] (I/We) worried wheth er (my/our) food would run out before (I/we) got money to buy more. Never true [facility] Start: 07-18-2022 Gender identity Identifies as female gender (finding) [facility] In the past 12 month s, was there a time when you were not able to pay the mortgage or rent on time? No [facility] Do you belong to any clubs or organizations such as temple groups, unions, fraternal or athletic groups, or school groups? Yes [facility] Are you now , , , , never or living with a partner? [facility] Do you feel stress - tense, restless, nervous, or anxious, or unable to sleep at night because your mind is troubled all the time - these days [OSQ] Only a little [facility] Start: 04-23-2022 Sex Female (finding) [facility] Clinical Notes 02-10-2021 to 10-07-2024 Assessment & Plan Note - Polo Ryan MD - 10/07/2024 2:41 PM ESTAssessment & Plan Note - Polo Ryan MD - 10/07/2024 2:41 PM ESTAleisha Luther MA - 10/07/2024 1:30 PM EST Note Date & Type Note Facility 10-07-2024 Evaluation + Plan note Associated Problem(s): Hypercholesterolemia Stable, diet controlled [facility] 10-07-2024 Miscellaneous Notes Associated Problem(s): Hypercholesterolemia Stable, diet controlled Associated Problem(s): Recurrent major depressive disorder, in full remission (HCC) Remission, continue Lexapro 20 mg daily Associated Problem(s): Anxiety Remission, continue Lexapro 20 mg daily documented in this encounter [facility] 10-07-2024 Evaluation + Plan note Associated Problem(s): Recurrent major depressive disorder, in full remission (HCC) Remission, continue Lexapro 20 mg daily [facility] 10-07-2024 Evaluation + Plan note Associated Problem(s): Anxiety Remission, continue Lexapro 20 mg daily [facility] 10-07-2024 History of Present illness Narrative Patient verified by last name and date of . Images from the original note were not included. 10/07/2024 Susu Jackson (: 1985) is a 38 y.o. female , Established patient, here for evaluation of the following chief complaint(s): Anxiety, Depression, Hyperlipidemia, Medication Check (6 month), Health Maintenance (Pap- 01/[address] Priscila [facility] ), and Letter for School/Work (Stating pt is ok to work ) ASSESSMENT/PLAN: 1. Recurrent major depressive disorder, in full remission (HCC) Assessment & Plan: Remission, continue Lexapro 20 mg daily 2. Anxiety Assessment & Plan: Remission, continue Lexapro 20 mg daily 3. Hypercholesterolemia Assessment & Plan: Stable, diet controlled Follow up in about 6 months (around 04/06/2025) for annual. SUBJECTIVE/OBJECTIVE: LOUISE Oneal comes in today for 6-month follow-up on her anxiety and depression she says she is doing very well on her current dose of Lexapro and she is not using her alprazolam anymore. She has a history of hypercholesterolemia but she has never been on medication. She also has starting a new as needed job and she needs another stating that she was examined in his disease-free and can do the job of the [employer]. Review of Systems Constitutional: Negative for chills and fever. Respiratory: Negative for shortness of breath. Cardiovascular: Negative for chest pain and palpitations. Gastrointestinal: Negative for abdominal pain, blood in stool, constipation and diarrhea. Genitourinary: Negative for dyspareunia, dysuria, frequency, hematuria and urgency. Neurological: Negative for weakness and numbness. Psychiatric/Behavioral: Negative for dysphoric mood. The patient is not nervous/anxious. Vitals: 10/07/24 1314 BP: 108/74 Pulse: 95 SpO2: 98% Weight: 211 lb (95.7 kg) Height: 5' 6 (1.676 m) Physical Exam Vitals and nursing note reviewed. Constitutional: General: She is not in acute distress. Appearance: Normal appearance. HENT: Head: Normocephalic. Right Ear: Tympanic membrane, ear canal and external ear normal. Left Ear: Tympanic membrane, ear canal and external ear normal. Mouth/Throat: Mouth: Mucous membranes are moist. Pharynx: Oropharynx is clear. Eyes: Extraocular Movements: Extraocular movements intact. Pupils: Pupils are equal, round, and reactive to light. Neck: Thyroid: No thyromegaly. Cardiovascular: Rate and Rhythm: Normal rate and regular rhythm. Heart sounds: Normal heart sounds. No murmur heard. Pulmonary: Effort: Pulmonary effort is normal. Breath sounds: Normal breath sounds. Abdominal: General: Bowel sounds are normal. Palpations: Abdomen is soft. Musculoskeletal: General: Normal range of motion. Cervical back: Normal range of motion. Lymphadenopathy: Cervical: No cervical adenopathy. Skin: General: Skin is warm and dry. Neurological: General: No focal deficit present. Mental Status: She is alert and oriented to person, place, and time. Psychiatric: Mood and Affect: Mood normal. An electronic signature was used to authenticate this note. Polo Ryan MD 10/07/2024 2:41 PM documented in this encounter [facility] 04-08-2024 Evaluation + Plan note Associated Problem(s): Class 1 obesity 5 pound weight loss, encouraged to continue with diet and exercise [facility] 04-08-2024 Miscellaneous Notes Associated Problem(s): Class 1 obesity 5 pound weight loss, encouraged to continue with diet and exercise Associated Problem(s): Hypercholesterolemia Controlled, continue very strict low-fat low-cholesterol diet Associated Problem(s): Recurrent major depressive disorder, in full remission (HCC) Remission, continue Lexapro 20 mg daily Associated Problem(s): Anxiety Remission, continue Lexapro 20 mg daily documented in this encounter [facility] 04-08-2024 Evaluation + Plan note Associated Problem(s): Hypercholesterolemia Controlled, continue very strict low-fat low-cholesterol diet [facility] 04-08-2024 Evaluation + Plan note Associated Problem(s): Recurrent major depressive disorder, in full remission (HCC) Remission, continue Lexapro 20 mg daily [facility] 04-08-2024 Evaluation + Plan note Associated Problem(s): Anxiety Remission, continue Lexapro 20 mg daily [facility] 04-08-2024 History of Present illness Narrative PHQ/HECTOR MESSAGED VIA [facility] Health Maintenance Addressed with Patient at Visit: HIV/HEP C-declined DM SCREEN-today HEP B VAC-today COVID VAC-completed PHQ/HECTOR-completed PAP-completed 01/21/2024 at [facility] Images from the original note were not included. 04/08/2024 Susu Jackson (: 1985) is a 38 y.o. female , Established patient, here for evaluation of the following chief complaint(s): Annual Exam and Health Maintenance (HIV/HEP C-declined/DM SCREEN-today/HEP B VAC-today/COVID VAC-completed/PHQ/HECTOR-completed/PA P-completed at [facility]/) ASSESSMENT/PLAN: 1. Annual physical exam 2. Recurrent major depressive disorder, in full remission (HCC) Assessment & Plan: Remission, continue Lexapro 20 mg daily 3. Anxiety Assessment & Plan: Remission, continue Lexapro 20 mg daily 4. Hypercholesterolemia Assessment & Plan: Controlled, continue very strict low-fat low-cholesterol diet Orders: - Lipid panel 5. Class 1 obesity Assessment & Plan: 5 pound weight loss, encouraged to continue with diet and exercise 6. Screening for diabetes mellitus - Comprehensive metabolic panel Follow up in about 6 months (around 10/09/2024). SUBJECTIVE/OBJECTIVE: LOUISE Oneal comes in today for her annual exam, she gets her well female exams done at her [employer]. Is also here for follow-up on her depression and anxiety which both seem to be in remission and her hyperlipidemia and we need to get updated lab work today. Review of Systems Constitutional: Negative for chills and fever. Respiratory: Negative for shortness of breath. Cardiovascular: Negative for chest pain and palpitations. Gastrointestinal: Negative for abdominal pain, blood in stool, constipation and diarrhea. Genitourinary: Negative for dyspareunia, dysuria, frequency, hematuria and urgency. Neurological: Negative for weakness and numbness. Psychiatric/Behavioral: Negative for dysphoric mood. The patient is not nervous/anxious. Vitals: 04/08/24 0826 BP: 127/83 Pulse: 81 Resp: 16 SpO2: 96% Weight: 217 lb (98.4 kg) Height: 5' 6 (1.676 m) Physical Exam Vitals and nursing note reviewed. Constitutional: General: She is not in acute distress. Appearance: Normal appearance. HENT: Head: Normocephalic. Right Ear: Tympanic membrane, ear canal and external ear normal. Left Ear: Tympanic membrane, ear canal and external ear normal. Mouth/Throat: Mouth: Mucous membranes are moist. Pharynx: Oropharynx is clear. Eyes: Extraocular Movements: Extraocular movements intact. Pupils: Pupils are equal, round, and reactive to light. Neck: Thyroid: No thyromegaly. Cardiovascular: Rate and Rhythm: Normal rate and regular rhythm. Heart sounds: Normal heart sounds. No murmur heard. Pulmonary: Effort: Pulmonary effort is normal. Breath sounds: Normal breath sounds. Abdominal: General: Bowel sounds are normal. Palpations: Abdomen is soft. Musculoskeletal: General: Normal range of motion. Cervical back: Normal range of motion. Lymphadenopathy: Cervical: No cervical adenopathy. Skin: General: Skin is warm and dry. Neurological: General: No focal deficit present. Mental Status: She is alert and oriented to person, place, and time. Psychiatric: Mood and Affect: Mood normal. An electronic signature was used to authenticate this note. Polo Ryan MD 04/08/2024 9:06 AM documented in this encounter [facility] 02-05-2024 History of Present illness Narrative Images from the original note were not included. 02/05/2024 Susu Jackson (: 1985) is a 38 y.o. female , Established patient, here for evaluation of the following chief complaint(s): Eye Drainage (Thinks it is pink eye daughter recently had pink eye. Started Saturday. ) ASSESSMENT/PLAN: 1. Bacterial conjunctivitis of left eye - ofloxacin (Ocuflox) 0.3 % ophthalmic solution; Administer 1 drop into the left eye in the morning and 1 drop at noon and 1 drop in the evening and 1 drop before bedtime. Do all this for 7 days., Starting 02/05/2024, Until Sat02/12/2024, Normal - Should be seen immediately by ophthalmology if severe eye pain, swelling, or visual disturbances occur. - Instructed to apply fresh, clean pillow cases, use good eye hygiene (separate rags for each eye), avoid touching eyes, wash hands frequently, and avoid use of eye makeup until symptoms improve. - Discussed signs and symptoms warranting follow up in the office- verbalized understanding. Follow up in 9 weeks (on 04/08/2024) for Next scheduled follow-up. SUBJECTIVE/OBJECTIVE: HPI - Susu presents today with concerns of her left eye being red and experiencing yellow, thick drainage. Eye was crusted shut this morning. Symptoms started this morning and her 3 year old currently has pink eye. Denies recent trauma to the area. Does not wear contact lenses. Review of Systems Constitutional: Negative for chills and fever. HENT: Negative for ear pain and rhinorrhea. Eyes: Positive for discharge and redness. Respiratory: Negative for chest tightness, shortness of breath and wheezing. Cardiovascular: Negative for chest pain. Vitals: 02/05/24 1124 02/05/24 1135 BP: (!) 138/92 118/72 Pulse: 84 SpO2: 98% Weight: 223 lb 6.4 oz (101 kg) Height: 5' 6 (1.676 m) Body mass index is 36.06 kg/m . Physical Exam Constitutional: General: She is not in acute distress. Appearance: She is not ill-appearing. HENT: Head: Normocephalic and atraumatic. Eyes: General: Left eye: Discharge (yellow) present. Conjunctiva/sclera: Left eye: Left conjunctiva is injected. Pulmonary: Effort: Pulmonary effort is normal. Neurological: Mental Status: She is alert. An electronic signature was used to authenticate this note. TAL Stevens CNP 02/05/2024 11:58 AM Patient verified by last name and . documented in this encounter [facility] 02-05-2024 Telephone encounter Note S: Patient spoke with [facility] nurse regarding lt eye red with drainage B: Onset of symptoms/concern this morning A: patient states drainage is thick and yellow and the eye is painful. Patient denies fever, sore throat. She reports she has some runny nose and that her 3 year old has pink eye. R: Appt scheduled this morning with Ra. Patient advised of gently cleaning the eye and not sharing of towel. Patient understands care advice. No further needs at this time. Patient instructed to call back with new or worsening symptoms. Reason for Disposition Eye with yellow or green discharge or eyelashes stick together, but NO standing order to call in antibiotic eye drops (Exception: Alecia; continue triage.) Protocols used: Eye - Pus or [id number] [facility] 02-05-2024 Miscellaneous Notes S: Patient spoke with [facility] nurse regarding lt eye red with drainage B: Onset of symptoms/concern this morning A: patient states drainage is thick and yellow and the eye is painful. Patient denies fever, sore throat. She reports she has some runny nose and that her 3 year old has pink eye. R: Appt scheduled this morning with Ra. Patient advised of gently cleaning the eye and not sharing of towel. Patient understands care advice. No further needs at this time. Patient instructed to call back with new or worsening symptoms. Reason for Disposition Eye with yellow or green discharge or eyelashes stick together, but NO standing order to call in antibiotic eye drops (Exception: Alecia; continue triage.) Protocols used: Eye - Pus or [id number] documented in this encounter [facility] 10-30-2023 Note HNO ID: [id number] Author: OCTAVIO SCHAEFFER APRN.[employer] Service: ? Author Type: Nurse Practitioner Type: Progress Notes Filed: 10/30/2023 13:23 Note Text: This note was created using [employer]. Subjective Susu Jackson is a 37 year old female. HPI by patient: Susu is a 36 year old presenting to the office with the complaint of sore throat Started approximately Associated symptoms include sore throat on R side, white spots on R tonsil (has tonsil stones), congestion, PND Denies any other concerns Covid Immunization Dates Overdue - Covid-19 Vaccine (2022- season) Overdue since 05/24/2023 04/14/2021 Imm Admin: COVID-19 original vaccine, age 12+ yr, monovalent (PFIZER-BIONTECH - PURPLE TOP) 03/18/2021 Imm Admin: COVID-19 original vaccine, age 12+ yr, monovalent (PFIZER-BIONTECH - PURPLE TOP) Sick contacts: no Smoking history/second hand smoke: no OTC nothing No antibiotic use in the last 60 days. ALLERGIES No Known Allergies No family history on file. Review of Systems Constitutional: Negative for chills and fever. HENT: Positive for postnasal drip and sore throat. Negative for congestion, ear pain and rhinorrhea. Respiratory: Negative for cough. Cardiovascular: Negative for chest pain. Allergic/Immunologic: Negative for immunocompromised state. Hematological: Negative for adenopathy. Objective BP 104/81 Pulse 84 Temp 36.6 ?C (97.9 ?F) Wt 100.7 kg (221 lb 14.3 oz) SpO2 99% BMI 35.81 kg/m? Physical Exam Vitals and nursing note reviewed. HENT: Right Ear: Tympanic membrane and ear canal normal. Left Ear: Tympanic membrane and ear canal normal. Nose: Congestion present. Mouth/Throat: Pharynx: Uvula midline. Posterior oropharyngeal erythema present. Tonsils: Tonsillar exudate present. Cardiovascular: Rate and Rhythm: Normal rate and regular rhythm. Heart sounds: Normal heart sounds. Pulmonary: Effort: Pulmonary effort is normal. Breath sounds: Normal breath sounds. Lymphadenopathy: Cervical: No cervical adenopathy. Skin: General: Skin is warm and dry. Neurological: Mental Status: She is alert and oriented to person, place, and time. Assessment and Plan ASSESSMENT/PLAN: 1. Exudative tonsillitis - ICD9: 463, ICD10: J03.90 (primary diagnosis) - Please see ENT for tonsil stones 2. Viral URI - ICD9: 465.9, ICD10: J06.9 - Discussed viral etiology and rationale for treatment. - Symptomatic treatment with prn analgesia - Supportive care with fluids and rest Octavio Schaeffer APRN.MONICA Medical Decision Making: Problems: Moderate: New problem with uncertain prognosis Data: Unique source(s) for external note(s) reviewed: 1 Unique test(s) ordered: 1 Risk: Moderate: Drug management Medical Decision Making Level: 4 - Moderate [facility] 10-30-2023 Instructions Octavio Schaeffer APRN.MONICA - 10/30/2023 1:11 PM EST UPPER RESPIRATORY INFECTIONS Most cases are caused by viruses and most cases are mild, temporary, and harmless. Symptoms can last 2 to 3 weeks and can include: nasal congestion, sore throat, coughing, muscles aches, headaches, nausea, diarrhea, fatigue and fever. 1. Drink plenty of fluids. 2. Get lots of rest. 3. Avoid dehydrants such as caffeine and alcohol. 4. Nasal saline is an effective decongestant and be used frequently throughout the day. 5. To loosen phlegm and help coughing, drink plenty of fluids and using a humidifier. 6. For sore throats, it is ok to use cough drops, throat sprays, or gargling warm salt water. 7. Always cover your mouth when you cough or sneeze, and wash your hands frequently. Avoid crowded areas like shopping centers, movies while you are sick so you don't shredder picker a different virus, or infect others. 8. Avoid exposure to cigarettes or fumes. 9. Avoid irritants such as potpourri, dust, perfumes, scented candles and scented sprays 10. Air conditioning is an effective allergen and irritant avoidance strategy in the spring, summer and fall. 11. Honey is an effective cough suppressant. Try one tsp two to three times per day. 12. Mucinex every 12 hours with a full 10-12 ounces of water The below information is from [employer]: Antibiotics will rarely help an upper respiratory infections. Antibiotics lead to more resistant infections that are harder to treat. There is little to no benefit to taking antibiotics for most acute upper respiratory tract infections. documented in this encounter [facility] 10-30-2023 History of Present illness Narrative This note was created using [employer]. Subjective Susu Jackson is a 37 year old female. HPI by patient: Susu is a 36 year old presenting to the office with the complaint of sore throat Started approximately Associated symptoms include sore throat on R side, white spots on R tonsil (has tonsil stones), congestion, PND Denies any other concerns Covid Immunization Dates Overdue - Covid-19 Vaccine ( season) Overdue since 05/24/2023 04/14/2021 Imm Admin: COVID-19 original vaccine, age 12+ yr, monovalent (PFIZER-BIONTECH - PURPLE TOP) 03/18/2021 Imm Admin: COVID-19 original vaccine, age 12+ yr, monovalent (PFIZER-BIONTECH - PURPLE TOP) Sick contacts: no Smoking history/second hand smoke: no OTC nothing No antibiotic use in the last 60 days. ALLERGIES No Known Allergies No family history on file. Review of Systems Constitutional: Negative for chills and fever. HENT: Positive for postnasal drip and sore throat. Negative for congestion, ear pain and rhinorrhea. Respiratory: Negative for cough. Cardiovascular: Negative for chest pain. Allergic/Immunologic: Negative for immunocompromised state. Hematological: Negative for adenopathy. Objective BP 104/81 Pulse 84 Temp 36.6 C (97.9 F) Wt 100.7 kg (221 lb 14.3 oz) SpO2 99% BMI 35.81 kg/m Physical Exam Vitals and nursing note reviewed. HENT: Right Ear: Tympanic membrane and ear canal normal. Left Ear: Tympanic membrane and ear canal normal. Nose: Congestion present. Mouth/Throat: Pharynx: Uvula midline. Posterior oropharyngeal erythema present. Tonsils: Tonsillar exudate present. Cardiovascular: Rate and Rhythm: Normal rate and regular rhythm. Heart sounds: Normal heart sounds. Pulmonary: Effort: Pulmonary effort is normal. Breath sounds: Normal breath sounds. Lymphadenopathy: Cervical: No cervical adenopathy. Skin: General: Skin is warm and dry. Neurological: Mental Status: She is alert and oriented to person, place, and time. Assessment and Plan ASSESSMENT/PLAN: 1. Exudative tonsillitis - ICD9: 463, ICD10: J03.90 (primary diagnosis) - Please see ENT for tonsil stones 2. Viral URI - ICD9: 465.9, ICD10: J06.9 - Discussed viral etiology and rationale for treatment. - Symptomatic treatment with prn analgesia - Supportive care with fluids and rest Octavio Schaeffer APRN.MONICA Medical Decision Making: Problems: Moderate: New problem with uncertain prognosis Data: Unique source(s) for external note(s) reviewed: 1 Unique test(s) ordered: 1 Risk: Moderate: Drug management Medical Decision Making Level: 4 - Moderate documented in this encounter [facility] 10-10-2023 Evaluation + Plan note Associated Problem(s): Hypercholesterolemia Controlled, continue low-fat low-cholesterol diet [facility] 10-10-2023 Evaluation + Plan note Associated Problem(s): Anxiety Remission, continue Lexapro 20 mg daily [facility] 10-10-2023 Miscellaneous Notes Associated Problem(s): Hypercholesterolemia Controlled, continue low-fat low-cholesterol diet Associated Problem(s): Anxiety Remission, continue Lexapro 20 mg daily Associated Problem(s): Recurrent major depressive disorder, in full remission (HCC) Remission, continue Lexapro 20 mg daily documented in this encounter [facility] 10-10-2023 Evaluation + Plan note Associated Problem(s): Recurrent major depressive disorder, in full remission (HCC) Remission, continue Lexapro 20 mg daily [facility] 10-10-2023 History of Present illness Narrative Patient verified by last name and date of . Images from the original note were not included. 10/10/2023 Susu Jackson (: 1985) is a 37 y.o. female , Established patient, here for evaluation of the following chief complaint(s): Anxiety, Depression, Hyperlipidemia, Medication Check (6 month), and Health Maintenance (Hiv/hep c screening- refuse/3rd covid vaccine- not done) ASSESSMENT/PLAN: 1. Recurrent major depressive disorder, in full remission (HCC) Assessment & Plan: Remission, continue Lexapro 20 mg daily 2. Anxiety Assessment & Plan: Remission, continue Lexapro 20 mg daily 3. Hypercholesterolemia Assessment & Plan: Controlled, continue low-fat low-cholesterol diet Follow up in about 6 months (around 04/09/2024). SUBJECTIVE/OBJECTIVE: LOUISE Oneal comes in today for 6-month follow-up on her anxiety and depression, she actually is doing very well she denies any problems. We also reviewed her labs from 6 months ago and her cholesterol was actually very good. Review of Systems Constitutional: Negative for chills and fever. Respiratory: Negative for shortness of breath. Cardiovascular: Negative for chest pain and palpitations. Gastrointestinal: Negative for abdominal pain, blood in stool, constipation and diarrhea. Genitourinary: Negative for dysuria, frequency, hematuria and urgency. Neurological: Negative for weakness and numbness. Psychiatric/Behavioral: Negative for dysphoric mood. The patient is not nervous/anxious. Vitals: 10/10/23 1309 BP: 88/60 Pulse: 83 SpO2: 98% Weight: 222 lb (101 kg) Height: 5' 6 (1.676 m) Physical Exam Vitals and nursing note reviewed. Constitutional: General: She is not in acute distress. Appearance: Normal appearance. HENT: Head: Normocephalic. Right Ear: Tympanic membrane, ear canal and external ear normal. Left Ear: Tympanic membrane, ear canal and external ear normal. Mouth/Throat: Mouth: Mucous membranes are moist. Pharynx: Oropharynx is clear. Eyes: Extraocular Movements: Extraocular movements intact. Pupils: Pupils are equal, round, and reactive to light. Cardiovascular: Rate and Rhythm: Normal rate and regular rhythm. Heart sounds: Normal heart sounds. No murmur heard. Pulmonary: Effort: Pulmonary effort is normal. Breath sounds: Normal breath sounds. Abdominal: General: Bowel sounds are normal. Palpations: Abdomen is soft. Musculoskeletal: General: Normal range of motion. Cervical back: Normal range of motion. Lymphadenopathy: Cervical: No cervical adenopathy. Skin: General: Skin is warm and dry. Neurological: General: No focal deficit present. Mental Status: She is alert and oriented to person, place, and time. Psychiatric: Mood and Affect: Mood normal. An electronic signature was used to authenticate this note. Polo Ryan MD 10/10/2023 1:38 PM documented in this encounter [facility] 04-01-2023 Evaluation + Plan note Associated Problem(s): Recurrent major depressive disorder, in full remission (HCC) Remission, continue Lexapro 20 mg daily [facility] 04-01-2023 Evaluation + Plan note Associated Problem(s): Hypercholesterolemia Controlled, continue strict low-fat low-cholesterol diet [facility] 04-01-2023 Miscellaneous Notes Associated Problem(s): Recurrent major depressive disorder, in full remission (HCC) Remission, continue Lexapro 20 mg daily Associated Problem(s): Hypercholesterolemia Controlled, continue strict low-fat low-cholesterol diet Associated Problem(s): Anxiety Remission, continue Lexapro 20 mg daily documented in this encounter [facility] 04-01-2023 Evaluation + Plan note Associated Problem(s): Anxiety Remission, continue Lexapro 20 mg daily [facility] 04-01-2023 History of Present illness Narrative Images from the original note were not included. 04/01/2023 Susu Jackson (: 1985) is a 37 y.o. female , Established patient, here for evaluation of the following chief complaint(s): Annual Exam, Health Maintenance, and Blood Work (Hep b vaccine- refuse/Mmr vaccine- done as child ) ASSESSMENT/PLAN: 1. Annual physical exam 2. Recurrent major depressive disorder, in full remission (HCC) Assessment & Plan: Remission, continue Lexapro 20 mg daily 3. Hypercholesterolemia Assessment & Plan: Controlled, continue strict low-fat low-cholesterol diet Orders: - Lipid panel 4. Anxiety Assessment & Plan: Remission, continue Lexapro 20 mg daily 5. Encounter for screening for diabetes mellitus - Comprehensive metabolic panel Follow up in about 6 months (around 10/02/2023). SUBJECTIVE/OBJECTIVE: LOUISE Oneal comes in today for an annual exam, she is also here for follow-up on her anxiety and depression which seems to be in remission at this time. She also has hypercholesterolemia and she is currently on no medication. And she needs fasting lab work for diabetes. She needs a refill on her medications. She denies any other complaints at this time, see ROS Review of Systems Constitutional: Negative for chills and fever. Respiratory: Negative for shortness of breath. Cardiovascular: Negative for chest pain and palpitations. Gastrointestinal: Negative for abdominal pain, blood in stool, constipation and diarrhea. Genitourinary: Negative for dyspareunia, dysuria, frequency, hematuria and urgency. Neurological: Negative for weakness and numbness. Psychiatric/Behavioral: Negative for dysphoric mood. The patient is not nervous/anxious. Vitals: 04/01/23 0925 BP: 106/74 Pulse: 79 SpO2: 97% Weight: 218 lb (98.9 kg) Height: 5' 6.5 (1.689 m) Physical Exam Vitals and nursing note reviewed. Constitutional: General: She is not in acute distress. Appearance: Normal appearance. She is obese. HENT: Head: Normocephalic. Right Ear: Tympanic membrane, ear canal and external ear normal. Left Ear: Tympanic membrane, ear canal and external ear normal. Mouth/Throat: Mouth: Mucous membranes are moist. Pharynx: Oropharynx is clear. Eyes: Extraocular Movements: Extraocular movements intact. Pupils: Pupils are equal, round, and reactive to light. Neck: Thyroid: No thyromegaly. Cardiovascular: Rate and Rhythm: Normal rate and regular rhythm. Heart sounds: Normal heart sounds. No murmur heard. Pulmonary: Effort: Pulmonary effort is normal. Breath sounds: Normal breath sounds. Abdominal: General: Bowel sounds are normal. Palpations: Abdomen is soft. Musculoskeletal: General: Normal range of motion. Cervical back: Normal range of motion. Lymphadenopathy: Cervical: No cervical adenopathy. Skin: General: Skin is warm and dry. Neurological: General: No focal deficit present. Mental Status: She is alert and oriented to person, place, and time. Psychiatric: Mood and Affect: Mood normal. An electronic signature was used to authenticate this note. Polo Ryan MD 04/01/2023 9:46 AM documented in this encounter [id number] 10-02-2022 Evaluation + Plan note Associated Problem(s): Recurrent major depressive disorder, in full remission (HCC) Remission, continue Lexapro 20 mg daily [id number] 10-02-2022 Evaluation + Plan note Associated Problem(s): Anxiety Remission, continue Lexapro 20 mg daily [id number] 10-02-2022 Miscellaneous Notes Associated Problem(s): Recurrent major depressive disorder, in full remission (HCC) Remission, continue Lexapro 20 mg daily Associated Problem(s): Anxiety Remission, continue Lexapro 20 mg daily Associated Problem(s): Hypercholesterolemia Controlled, continue low-fat low-cholesterol diet documented in this encounter [facility] 10-02-2022 Evaluation + Plan note Associated Problem(s): Hypercholesterolemia Controlled, continue low-fat low-cholesterol diet [facility] 10-02-2022 History of Present illness Narrative Patient verified by last name and date of . Patient wants a fur nailer in the room during during the visit. no Roofing Apprentice na Images from the original note were not included. 10/02/2022 Susu Jackson (: 1985) is a 36 y.o. female , Established patient, here for evaluation of the following chief complaint(s): Anxiety, Depression, Hyperlipidemia, Medication Check, and Health Maintenance (Hep c/hiv- refuse/Varicella- had chicken pox /Pap test- see Dr Priscila Morales in [place] /Covid 3- not done/Flu vaccine- agree ) ASSESSMENT/PLAN: 1. Recurrent major depressive disorder, in full remission (HCC) Assessment & Plan: Remission, continue Lexapro 20 mg daily 2. Anxiety Assessment & Plan: Remission, continue Lexapro 20 mg daily 3. Hypercholesterolemia Assessment & Plan: Controlled, continue low-fat low-cholesterol diet Follow up in about 6 months (around 04/01/2023) for annual. SUBJECTIVE/OBJECTIVE: LOUISE Oneal comes in today for a 6-month follow-up on her depression and anxiety, she also has a history of hypercholesterolemia but she is on no medication. She says she is doing fine and has no complaints today everything seems to be well controlled. Review of Systems Constitutional: Negative for chills and fever. Respiratory: Negative for shortness of breath. Cardiovascular: Negative for chest pain and palpitations. Gastrointestinal: Negative for abdominal pain, blood in stool, constipation and diarrhea. Genitourinary: Negative for dyspareunia, dysuria, frequency, hematuria and urgency. Neurological: Negative for weakness and numbness. Psychiatric/Behavioral: Negative for dysphoric mood. The patient is not nervous/anxious. Vitals: 10/02/22 0940 BP: 100/65 Pulse: 84 Weight: 204 lb 9.6 oz (92.8 kg) Height: 5' 6 (1.676 m) Physical Exam Vitals and nursing note reviewed. Constitutional: General: She is not in acute distress. Appearance: Normal appearance. HENT: Head: Normocephalic. Right Ear: Tympanic membrane, ear canal and external ear normal. Left Ear: Tympanic membrane, ear canal and external ear normal. Mouth/Throat: Mouth: Mucous membranes are moist. Pharynx: Oropharynx is clear. Eyes: Extraocular Movements: Extraocular movements intact. Pupils: Pupils are equal, round, and reactive to light. Cardiovascular: Rate and Rhythm: Normal rate and regular rhythm. Heart sounds: Normal heart sounds. No murmur heard. Pulmonary: Effort: Pulmonary effort is normal. Breath sounds: Normal breath sounds. Abdominal: General: Bowel sounds are normal. Palpations: Abdomen is soft. Musculoskeletal: General: Normal range of motion. Cervical back: Normal range of motion. Lymphadenopathy: Cervical: No cervical adenopathy. Skin: General: Skin is warm and dry. Neurological: General: No focal deficit present. Mental Status: She is alert and oriented to person, place, and time. Psychiatric: Mood and Affect: Mood normal. An electronic signature was used to authenticate this note. Polo Ryan MD 10/02/2022 10:30 AM After obtaining consent, and per orders of Dr. Ryan, injection of flu vaccine given in left deltoid by Magaly Fontanez. Patient instructed to report any adverse reaction immediately. documented in this encounter [facility] 07-25-2022 History of Present illness Narrative [facility] NON-SURGICAL WEIGHT LOSS MANAGEMENT PROGRAM PROGRESS NOTE - INITIAL CONSULTATION Patient: Susu Jackson Date of : 1985 Service Date: 07/25/22 Patient is here today to discuss non-surgical weight loss management. This patient is patient for the evaluation today Waist Circumference: 43.5 in (add to Surgical Wt Management Flowsheet) Neck Circumference: 13.25 in (add to Surgical Wt Management Flowsheet) Weight Metrics: Date of Initial Consultation:@FLOWLAST([id number])@ Initial Weight: @FLOWLAST([id number])@ Initial BMI: @FLOWLAST([id number])@ [place] Body Weight: @FLOWLAST([id number])@ Excess Body Weight: @FLOWLAST([id number])@ Body Fat Percentage: NO Diabetes Do you currently have diabetes? No Are you currently prescribed insulin? No Are you currently prescribed an oral medication for diabetes? No NO GERD (Gastroesophageal Reflux Disease) Do you currently have GERD? No Do you get heartburn type symptoms more than twice per week? No Are you currently on a medication for GERD? (not TUMS) (examples: Prilosec/omeprazole, Zantac/ranitidine, etc.) No NO Hyperlipidemia (high cholesterol) Do you currently have a diagnosis of high cholesterol? No Are you currently prescribed a medication for high cholesterol? (examples Lipitor/Atorvastatin, Pravastatin, Zetia, Tricor, etc.) No Have you been diagnosed with high cholesterol but chosen not to take medication? No NO Hypertension (high blood pressure) Do you currently have a diagnosis of Hypertension? No Are you currently on a medication for Hypertension? No Have you been diagnosed with Hypertension but have chosen not to take the medication? No NO Sleep Apnea Do you currently have Sleep Apnea? No Are you on a device (CPAP, BiPAP, etc) for Sleep Apnea? No Have you been diagnosed with Sleep Apnea but cannot tolerate or have chosen not to treat? No Falls Risk Assessment Patient does take medications which affect BP or mental status Patient does not have newly prescribed or changed dosage of medications within past 30 days which affect BP or mental status Patient has not fallen in the past 2 months Patient does notdemonstrate unsteady gait Patient uses the following ambulatory assistive devices: NO Patient states the presence of the following traits which increases risk of fall: NO Patient is not on home O2 Completed by: Aida Marsh MA [facility] NON-SURGICAL WEIGHT LOSS MANAGEMENT PROGRAM PROGRESS NOTE INITIAL EVALUATION Patient: Susu Jackson Service Date: 07/25/22 Date of : 1985 Patient History/Assessment Summary: The patient is a pleasant 36 y.o. year old female, who stands Height: 5' 6.5 (168.9 cm) tall with a weight of Weight: 197 lb 3.2 oz (89.4 kg) pounds, resulting in a BMI of Body mass index is 31.35 kg/m . kg/m2. She has been overweight for 10+ years, and has tried and failed multiple previous diet attempts and is now seeking non-surgical treatment of her obesity This patient is unaccompanied for the evaluation today. PLAN ROS: I have reviewed New Patient Assessment Form with the Patient, which is located in the Director Professional Services Tab. History: Past Medical History: Diagnosis Date Abnormal Pap smear of cervix abnormal cells, resolved 15 years Anal fistula Anxiety Depression Early hospital discharge assessment 01/20/2020 Family history of malignant neoplasm of gastrointestinal tract Hematuria, unspecified Hypothyroid Infertility, female IVF Miscarriage Normal gynecologic examination 01/20/2020 Obesity Perianal fistula Polycystic ovaries pt states she doesnt have this care following vaginal delivery 01/20/2020 Spontaneous vaginal delivery 12/18/2018 Past Surgical History: Procedure Laterality Date COLONOSCOPY 2012 HERNIA REPAIR Bilateral 1992 OTHER SURGICAL HISTORY 12/04/2019 Intersphincteric fistulotomy OTHER SURGICAL HISTORY 01/31/2018 Fistulotomy Family History Problem Relation Name Age of Onset No Known Problems Mother High Blood Pressure Father Social History Tobacco Use Smoking status: Former Packs/day: 0.50 Types: Cigarettes Quit date: 09/23/2016 Years since quittin.8 Smokeless tobacco: Never Substance Use Topics Alcohol use: Not Currently This patient's excess weight is causing the following co-morbid conditions at this time:Other depression Physical Examination: BP 107/73 Pulse 73 Ht 5' 6.5 (1.689 m) Wt 197 lb 3.2 oz (89.4 kg) BMI 31.35 kg/m Weight Metrics: [place] Body Weight: [place] Body Weight: 140 lb (63.5 kg) Excess Body Weight: [place] BMI: 28 General: This patient is alert and oriented X3 General: This patient is obese, and is in no apparent distress. Psychological: Patient is awake, alert and oriented to person, place and time Patient's mood is Euthymic Current Diet This patient s current diet is:contains large amounts of high glycemic index foods Her diet contains adequate amounts of protein, adequate amounts of healthy fats, adequate amounts of green, leafy vegetables, and adequate amounts of fruits. Her comfort foods include:sweets Current Activity This patient currently does exercise for 30 min per session, 3 times per week, including the following: cardio . Current Eating Behaviors Increased appetite before period Binging episodes Health and Behavior Patient scores as (Select one): [] Unguided Grazer [] Nighttime Nibbler [x] Convenient Consumer [] Fruitless Navin [] Mindless Muncher [] Hearty Portioner [] Deprived Sneaker [] Hate to Move Struggler [] Self-Conscious Hider [] Inexperienced Hankins [] Mew-cb-Xhyxazw Doer [] Set-Routine Repeater [] Pnsem-hsq-Nffsj Sufferer [] Dz-arsx-fb-Exercise Protester [] Emotional Mortgage Manager [] Spz-Xatq-Sgyfko Sufferer [] Persistent Procrastinator [] Can t-Say-No Pleaser [] Fast Pacer [] Pessimistic Thinker [] Unrealistic Achiever This patients demonstrates the following behaviors as they relate to her eating:eats large portions and eats in response to mood and hormonal changes She eats approximately 3-4 times per day. Her last meal/snack was at 6-7 pm. Plan: Obesity Continue current management, continue/start weight loss program Depression Continue current management, continue/start weight loss program Advised patient that they are cleared medically to proceed with enrollment in our non-surgical weight loss management program Goals: 3 month weight goal: 10 lbs 6 month weight goal: 30 lbs 12 month weight goal: 60 lbs Tests Labwork:none - to be drawn 2 weeks prior to first physician follow up visit Additional Labwork: None - to be drawn 2 weeks prior to first physician follow up visit Consultations: Cardiology Risk Stratification: None Pulmonary Evaluation: None Other Consultations:None Obtain prior medical records from: [] Refer for Surgical Weight Loss Evaluation Mail labwork order with schedule Current Meds Patient's Medications New Prescriptions No medications on file Previous Medications ESCITALOPRAM (LEXAPRO) 20 MG TABLET Take 1 tablet by mouth in the morning. Modified Medications No medications on file Discontinued Medications No medications on file Patient is not taking anti-obesity medication. I spent a total of 45 minutes on the day of the visit in counseling, discussing lifestyle changes that are pertinent to a successful weight loss journey;and reviewing the chart including available communication from the the patient and the referring provider. 1.Education on meal composition,meal structure, meal preps, shopping list 2. Discussion on elements of behavioral strategies such self-monitoring, controlling and modifying the stimuli that activate eating;slowing down the eating process;goal-setting on the process,behavioral royer and reinforcement,cognitive restructuring, problem-solving,assertiveness training. 3. Physical activity - build fitness to aerobic physical activity 150-300 min/wk and strength training 2-3 times per wk. 4.depression Is associated with obesity and weight loss is discussed as a treatment option for depression 5.in the process of stopping breast feeding Currently around 1800 dom Discuss how to create 300-500 deficit How to exercise at home The patient was seen and a full chart review was performed.Clinical documentation is updated and completed. documented in this encounter [facility] 05-12-2022 Instructions Heidi Lozano PA-C - 05/12/2022 8:58 AM EDT [facility] PATIENT INFO PHARYNGITIS OVERVIEW A sore throat (pharyngitis) is a common problem, and usually is caused by a viral or bacterial infection. Sore throat usually resolves on its own without complications in adults, although it is important to know when to seek medical attention. Viruses can cause a sore throat and other upper respiratory infections, such as the common cold. Sore throat caused by a virus is not treated with antibiotics, but instead may be treated with rest, pain medication, and other therapies aimed at relieving symptoms. Strep throat is a particular kind of pharyngitis that is caused by a bacterium known as group A streptococcus (GAS). Strep throat is treated with a course of antibiotics. SORE THROAT SYMPTOMS Viral pharyngitis -- Most people with a sore throat have a virus. The most common viruses are those that cause upper respiratory infections, such as the common cold. Symptoms of a viral infection can include: A runny or congested nose Irritation or redness of the eyes Cough, hoarseness, or soreness in the roof of the mouth Some viruses cause a fever and can make you feel quite ill. Strep throat -- Approximately 10 percent of adults with a sore throat have strep throat. Signs and symptoms of strep throat include the following: Pain in the throat Fever (temperature greater than 100.4 F or 38 C) Enlarged lymph glands in the neck White patches of pus on the side or back of the throat No cough, runny nose, or irritation/redness of the eyes Other infections -- Many other less common but more serious infections can cause a sore throat, including mononucleosis (mono), influenza (the flu), N. gonococcus (gonorrhea), human immunodeficiency virus (HIV), and others. When to seek urgent help -- See your doctor or nurse immediately if you have a sore throat along with any of the following: Difficulty breathing Skin rash Drooling because you cannot swallow Swelling of the neck or tongue Stiff neck or difficulty opening the mouth SORE THROAT DIAGNOSIS Most people with a sore throat get better without treatment. There is no specific treatment for a sore throat caused by usual cold viruses. Is it strep or not? -- A combination of symptoms (fever, enlarged glands in the neck, white patches on your tonsils, and no cough) can help in determining if you have strep. If you have two or more symptoms, a rapid test or throat culture may be done. People with fewer than two symptoms usually do not need testing or treatment for strep throat. Rapid test -- The rapid test determines if there are streptococcus bacteria on a throat swab. The test can be done in a clinician's office and the results are available within a few minutes. The test is accurate in most cases, although a small percentage of tests are falsely negative (the bacteria are present but the test is negative). Throat culture -- A throat culture involves swabbing the throat, sending the swab to a laboratory, and waiting 24 to 48 hours for the results. Throat cultures are slightly more accurate than the rapid test. TREATMENT OF SORE THROAT Sore throat treatment -- Antibiotics do not help throat pain caused by a virus and are not recommended. Sore throat caused by viral infections usually lasts four to five days. During this time, treatments to reduce pain may be helpful. Several therapies can help to relieve throat pain. Pain medication -- You can treat your throat pain with a mild pain reliever such as acetaminophen (Tylenol ) or a non-steroidal anti-inflammatory agent such as ibuprofen or naproxen (Motrin or Aleve ). Oral rinses -- Salt-water gargles are an old stand-by for throat pain. It is not clear that salt water works to relieve pain, but it is unlikely to be harmful. Most recipes suggest 1/4 to 1/2 teaspoon of salt per one cup (8 ounces) of warm water. Sprays -- Sprays containing topical anesthetics (eg, benzocaine, phenol) are available to treat sore throat. However, such sprays are no more effective than sucking on hard candy. Lozenges -- A variety of lozenges (cough drops) are available to treat throat pain or relieve dryness. However, it is not clear that lozenges work any better than other forms of hard candy, which are generally less expensive. Other treatments -- Other treatments that may help with throat pain include sipping warm beverages (eg, honey or lemon tea, chicken soup), cold beverages, or eating cold or frozen desserts (eg, ice cream, popsicles). Alternative therapies -- Health food stores, vitamin outlets, and Internet Web sites offer alternative treatments for relief of sore throat pain. We do not recommend these type of treatments due to the risks of contamination with pesticides/herbicides, inaccurate labeling and dosing information, and a lack of studies showing that these treatments are safe and effective. Strep throat -- Although strep throat typically resolves on its own within two to five days, treatment with antibiotics is recommended for adults whose rapid test or throat culture is positive for strep throat. Penicillin, or an antibiotic related to penicillin, is the treatment of choice for strep throat. It is usually given in pill or liquid form two to four times per day for 10 days. A one time injection of penicillin is also available. People who are allergic to penicillin are given an alternate antibiotic. It is important to finish the entire course of treatment to completely eliminate the infection. If symptoms do not begin to improve or worsen by three days of antibiotic treatment, you should see your doctor or nurse again. Return to work/school -- If you have been diagnosed with strep throat, stay home from work or school until you have completed 24 hours of antibiotics. Within 24 hours of beginning antibiotic treatment, you will feel better and will be less contagious [1]. If you have a sore throat (not diagnosed as strep), you may participate in your usual activities as soon as you feel well. SORE THROAT PREVENTION Hand washing is an essential and highly effective way to prevent the spread of infection. Wet your hands with water and plain soap, and rub them together for 15 to 30 seconds. Pay special attention to the fingernails, between the fingers, and the wrists. Rinse your hands thoroughly, and dry them with a clean towel. Alcohol-based hand rubs are a good alternative for disinfecting hands if a sink is not available. Hand rubs should be spread over the entire surface of hands, fingers, and wrists until dry, and may be used several times. These rubs can be used repeatedly without skin irritation or loss of effectiveness. Hand rubs are available as a liquid or wipe in small, portable sizes that are easy to carry in a pocket or handbag. When a sink is available, visibly soiled hands should be washed with soap and water. Wash your hands after coughing, blowing the nose, or sneezing. While it is not always possible to avoid being near a person who is sick, avoiding touching your eyes, nose, or mouth to prevent the spread of infection. In addition, tissues should be used to cover the mouth when sneezing or coughing. These used tissues should be disposed of promptly. Sneezing/coughing into your sleeve (at the inner elbow) is another way to contain sprays of saliva and secretions and will not contaminate your hand documented in this encounter [facility] 05-12-2022 History of Present illness Narrative Subjective Susu Jackson is a 36 year old female with a past medical history of anxiety, depression, and hypothyroidism presents to [facility] today for evaluation of sore throat and nasal congestion that began 3 days ago. Patient denies having any fevers. She denies any known exposure to COVID-19 or influenza. No cough or ear pain. Review of Systems Constitutional: Negative for chills, diaphoresis and fever. HENT: Positive for congestion and sore throat. Negative for ear pain. Eyes: Negative for discharge and redness. Respiratory: Negative for cough and shortness of breath. Skin: Negative for rash and wound. Neurological: Negative for weakness and headaches. All other systems reviewed and are negative. Objective BP 108/70 Pulse 74 Temp 36.4 C (97.5 F) Resp 16 Ht 167.6 cm (5' 6) Wt 84.8 kg (187 lb) SpO2 98% BMI 30.18 kg/m Physical Exam Vitals reviewed. Constitutional: General: She is not in acute distress. Appearance: Normal appearance. She is normal weight. She is not ill-appearing or toxic-appearing. Comments: The patient appears to be non-toxic, in no acute distress, and resting comfortably on the table. HENT: Head: Normocephalic and atraumatic. Mouth/Throat: Mouth: Mucous membranes are moist. Pharynx: Oropharynx is clear. Uvula midline. Posterior oropharyngeal erythema present. Tonsils: Tonsillar exudate present. 2+ on the right. 2+ on the left. Eyes: Extraocular Movements: Extraocular movements intact. Cardiovascular: Rate and Rhythm: Normal rate and regular rhythm. Heart sounds: Normal heart sounds. No murmur heard. No friction rub. No gallop. Pulmonary: Effort: Pulmonary effort is normal. No respiratory distress. Breath sounds: Normal breath sounds. No wheezing. Musculoskeletal: General: Normal range of motion. Cervical back: Normal range of motion. Lymphadenopathy: Cervical: Cervical adenopathy (bilateral anterior) present. Skin: General: Skin is warm and dry. Findings: No erythema or rash. Neurological: General: No focal deficit present. Mental Status: She is alert and oriented to person, place, and time. Mental status is at baseline. Psychiatric: Mood and Affect: Mood normal. Behavior: Behavior normal. Thought Content: Thought content normal. Assessment and Plan Exam reveals postpharyngeal erythema with bilateral tonsillar edema and white tonsillar exudate. Uvula is midline. No trismus. There is bilateral anterior cervical lymphadenopathy. Rapid strep negative however history and exam are consistent with strep pharyngitis and therefore patient will be treated with antibiotics. Patient counseled regarding suspected diagnosis and given prescription for amoxicillin. Patient advised to follow-up with a primary care provider as needed for any new or worsening symptoms. ASSESSMENT/PLAN: 1. Exudative pharyngitis - ICD9: 462, ICD10: J02.9 (primary diagnosis) - AMOXICILLIN 500 MG CAPSULE 2. Sore throat - ICD9: 462, ICD10: J02.9 3. Nasal congestion - ICD9: 478.19, ICD10: R09.81 Medical Decision Making: Problems: Low: Acute, uncomplicated illness or injury Risk: Minimal: Minimal risk from testing/treatment Moderate: Drug management Medical Decision Making Level: 3 - Low I spent a total of 20 minutes on the date of the service which included preparing to see the patient, [id number] patient care, completing clinical documentation, performing a medically appropriate examination, counseling and educating the patient/family/caregiver, and ordering medications, tests, or procedures. documented in this encounter [facility] 02-10-2021 Hospital Discharge instructions Maria De Jesus Little PA - 02/10/2021 Images from the original note were not included. After Your Delivery (the Period): Your Care Instructions Thank you for allowing us to care of you at [facility]. This time can be one of many emotional ups and downs and many changes in your life. In these first weeks try to take good care of yourself because you will likely feel very tired. It may take 4 to 6 weeks to feel like yourself again, and possibly longer if you had a . FOLLOW-UP: Your follow-up care is a burgos part of your treatment and safety. Follow-up with your OB providerin 4 weeks or as specified by your OB provider. If you had high blood pressure, visit your OB provider within 3-5 days after being home. Most women's blood pressure will return to pre- levels after delivery. However, some patients continue to have problems with their blood pressure, and some even get worse. Very high blood pressure can lead to seizures or stroke which can be life threatening. If ordered by your provider, take your blood pressure at home and call your OB provider if you have a high reading. Your OB provider can write you a prescription for a blood pressure monitor if you do not have one. Be sure to make and go to all appointments, and call your OB provider if you are having problems. It's also a good idea to know your test results and keep a list of the medicines you take. BLEEDING Vaginal bleeding will decrease in amount over the next few weeks. Bleeding may shredder picker and then decrease again around 7-10 days . Use pads instead of tampons for the bloody flow that may last as long as 2 weeks. You will notice that as your activity increases, your flow may increase. Call your provider if you are saturating one maxi pad in an hour & passing large clots for 3 hours or more. ACTIVITY NO SEXUAL activity for 6 weeks or until advised by your OB provider; Nothing in vagina: intercourse, tampons, or douching. Begin to think about your reproductive life plan. Talk to your OB provider about if and when you would like another baby in the future. The recommendation for safe spacing is 18-24 months. Showering is okay; NO tub baths, swimming, or hot tubs. Gradually increase your activity. Resume exercise regimen only after advised by your )OB provider. Avoid lifting anything heavier than ten pounds or a gallon of milk for six weeks. Avoid driving 1 week for vaginal delivery and 2 weeks for section, or longer if you are on prescription pain medicine unless otherwise instructed by your OB provider . Rise slowly from a lying to sitting and then a standing position. Climb stairs carefully. You may feel tired or have a lack of energy. You may continue your vitamin to replenish nutrients post-delivery. Nap when whenever you can to catch up on sleep. EMOTIONS You may feel [place]amo, sad, teary, & overwhelmed for the first 2 weeks ; however, feelings of depression may occur any time within the first year after delivery. Contact your OB provider if you feel you may be showing signs of depression, or have thoughts of harming yourself or or anyone.. WOUND CARE For Vaginal Delivery: Shower daily, and cleanse your perineum (bottom) with mild soap from front to back. Use the plastic squirt bottle until bleeding stops each time you use the restroom instead of wiping with toilet paper. Ease soreness of hemorrhoids and the area between your vagina and rectum with ice compresses or witch veronica pads. If used, stitches will dissolve in 4-6 weeks on their own. You may use a sitz bath or soak in a clean tub with drain open and water running for comfort. Kegel exercises will help restore bladder control. To do these tighten your muscles as if you were stopping your urine flow. Hold for a few seconds and then relax. Do these throughout the day. For Section Delivery: Keep your incision clean and dry. If you had steri-strips you may remove these once they start falling off. If you have jose they need to be removed 3-10 daysafter delivery. If you have steri-strips, remove after 7 - 10 days. Do not wear clothing that irritates the incision line. If your incision is in a crease that is not dry, use a hair-dryer to dry the area 3 times a day. If you develop fever, shaking chills, redness, swelling, drainage or discharge from your wound, or if your wound looks like it is coming apart call your provider immediately. BREAST CARE If you develop a warm, red, tender area on your breast or develop a fever contact your OB provider. If your breasts become engorged ask your provider because treatment can vary according to your needs. DIET & CONSTIPATION Eat a well-balanced diet focusing on foods high in fiber and protein such as: whole grain cereals and breads, fruits and vegetables and legumes (eg, beans, lentils) Drink 8-10 glasses of fluids daily, especially water. Limit caffeine. To avoid constipation you may take a mild ouop-[id number]-[id number] stool softener (such as colace) as recommended by your OB provider. SWELLING Try to keep your legs elevated when you are sitting or lying down. Stay hydrated and take walks. If you had high blood pressure, weigh yourself at the same time each day. Write down your weight and take the record to your OB provider appointment. MEDICATIONS Take all medications prescribed for you exactly as ordered. Don't take any drugs not prescribed to you or over the counter medicines unless recommended by your provider. Don't smoke. WHEN TO CALL THE OB PROVIDER Signs of infection, including fever and chills Increased bleeding: soaking more than one pad an hour or passing clots the size of an egg or larger. Wounds that become red, swollen or drain pus Vaginal discharge that smells foul New pain, swelling, or tenderness in your legs Pain that you can't control with the medications you've been given Pain, burning, urgency or frequency of urination, or persistent bleeding in the urine Cough, shortness of breath, or serious difficulty catching your breath Chest pain or pain in the upper right area of your belly Headache (very painful) or vision changes like blurry or double vision, seeing spots or 'auras' Swelling that is worse or weight gain of more than 3 pounds in 3 days Depression, suicidal thoughts, or feelings of harming someone else Breasts that are hot, red and accompanied by fever Any cracking or bleeding from the nipple or areola (the dark-colored area of the breast) You may have been given a magnet like this: If so, we encourage you to use it on your refrigerator as a reminder of when to call your OB provider. IIn case of an emergency, call 911 immediately. If you are Covid-19 positive or a Person Under Investigation (PUI) These could be signs that your COVID-19 symptoms are worsening and you may need emergency care: You are severely dizzy or lightheaded. You are confused or can't think clearly. Your face and lips have a blue color. You are unable to respond to others or are very hard to wake up. Prevention steps for People with confirmed or suspected COVID-19 (including persons under investigation) who do not need to be hospitalized and People with confirmed COVID-19 who were hospitalized and determined to be medically stable to go home Your healthcare provider and public health staff will evaluate whe ther you can be cared for at home. If it is determined that you do not need to be hospitalized and can be isolated at home, you will be monitored by staff from your local or state health department. You should follow the prevention steps below until a healthcare provider or local or state health department says you can return to your normal activities. Stay home except to get medical care People who are mildly ill with COVID-19 are able to isolate at home during their illness. You should restrict activities outside your home, except for getting medical care. Do not go to work, school, or public areas. Avoid using public transportation, ride-sharing, or taxis. Separate yourself from other people and animals in your home People: As much as possible, you should stay in a specific room and away from other people in your home. Also, you should use a separate bathroom, if available. Animals: You should restrict contact with pets and other animals while you are sick with COVID-19, just like you would around other people. Although there have not been reports of pets or other animals becoming sick with COVID-19, it is still recommended that people sick with COVID-19 limit contact with animals until more information is known about the virus. When possible, have another member of your household care for your animals while you are sick. If you are sick with COVID-19, avoid contact with your pet, including petting, snuggling, being kissed or licked, and sharing food. If you must care for your pet or be around animals while you are sick, wash your hands before and after you interact with pets and wear a facemask. Call ahead before visiting your provider If you have a medical appointment, call the healthcare provider and tell them that you have or may have COVID-19. This will help the healthcare provider's office take steps to keep other people from getting infected or exposed. Wear a facemask You should wear a facemask when you are around other people (e.g., sharing a room or vehicle) or pets and before you enter a healthcare provider's office. If you are not able to wear a facemask (for example, because it causes trouble breathing), then people who live with you should not stay in the same room with you, or they should wear a facemask if they enter your room. Cover your coughs and sneezes Cover your mouth and nose with a tissue when you cough or sneeze. Throw used tissues in a lined trash can. Immediately wash your hands with soap and water for at least 20 seconds or, if soap and water are not available, clean your hands with an alcohol-based hand public relations that contains at least 60% alcohol. Clean your hands often Wash your hands often with soap and water for at least 20 seconds, especially after blowing your nose, coughing, or sneezing; going to the bathroom; and before eating or preparing food. If soap and water are not readily available, use an alcohol-based hand public relations with at least 60% alcohol, covering all surfaces of your hands and rubbing them together until they feel dry. Soap and water are the best option if hands are visibly dirty. Avoid touching your eyes, nose, and mouth with unwashed hands. Avoid sharing personal household items You should not share dishes, drinking glasses, cups, eating utensils, towels, or bedding with other people or pets in your home. After using these items, they should be washed thoroughly with soap and water. Clean all high-touch surfaces everyday High touch surfaces include counters, tabletops, doorknobs, bathroom fixtures, toilets, phones, keyboards, tablets, and bedside tables. Also, clean any surfaces that may have blood, stool, or body fluids on them. Use a household cleaning spray or wipe, according to the label instructions. Labels contain instructions for safe and effective use of the cleaning product including precautions you should take when applying the product, such as wearing gloves and making sure you have good ventilation during use of the product. Monitor your symptoms Seek prompt medical attention if your illness is worsening (e.g., difficulty breathing). Before seeking care, call your healthcare provider and tell them that you have, or are being evaluated for, COVID-19. Put on a facemask before you enter the facility. These steps will help the healthcare provider's office to keep other people in the office or waiting room from getting infected or exposed. Ask your healthcare provider to call the local or state health department. Persons who are placed under active monitoring or facilitated self-monitoring should follow instructions provided by their local health department or occupational health professionals, as appropriate. When working with your local health department check their available hours. If you have a medical emergency and need to call 911, notify the dispatch personnel that you have, or are being evaluated for COVID-19. If possible, put on a facemask before emergency medical services arrive. Discontinuing home isolation Patients with confirmed COVID-19 should remain under home isolation precautions until the risk of secondary transmission to others is thought to be low. The decision to discontinue home isolation precautions should be made on a [id number] basis, in consultation with healthcare providers and state and local health departments. Information on COVID-19 for all patients Call your provider before your next appointment if you develop any of the following symptoms: fever, cough, fatigue, anorexia, shortness of breath, sputum production, and muscle pains. Headache, confusion, rhinorrhea, sore throat, hemoptysis, vomiting, and diarrhea have been reported but are less common. Some persons with COVID-19 have experienced gastrointestinal symptoms such as diarrhea and nausea prior to developing fever and lower respiratory tract signs and symptoms. Ways to [place] with Anxiety & Stress It is normal to feel anxious or worried about COVID-19. You might feel sad about canceling celebrations and staying away from family and friends. Keep in mind that most people do not get severely ill from COVID-19. It is important to have a plan in case you get sick to prevent spreading the disease to others including an Advanced Care Plan (communicating and documenting your desired health care plan with family and healthcare team). You can take care of yourself by: ? Taking a break from watching the news ? Take deep breaths, stretch or meditate ? Getting exercise, eating healthy foods, and drinking plenty of water ? Finding activities you can enjoy inside your home ? Staying in touch with your family and friends. Tell your partner, family, and friends how you are feeling. Advance Care Planning People with COVID-19 may have no symptoms, mild symptoms, such as fever, cough, and shortness of breath or they may have more severe illness, developing severe and fatal pneumonia. As a result, Advance Care Planning with attention to naming a health care decision maker (someone you trust to make healthcare decisions for you if you could not speak for yourself) and sharing other health care preferences is important BEFORE a possible health crisis. Please contact your Primary Care Provider to discuss Advance Care Planning. Learning About Coronavirus (COVID-19) Coronavirus (COVID-19): Overview What is coronavirus (COVID-19)? The coronavirus disease (COVID-19) is caused by a virus. It is an illness that was first found in [facility], in August 2019. It has since spread worldwide. The virus can cause fever, cough, and trouble breathing. In severe cases, it can cause pneumonia and make it hard to breathe without help. It can cause . Coronaviruses are a large group of viruses. They cause the common cold. They also cause more serious illnesses like [place] respiratory syndrome (MERS) and severe acute respiratory syndrome (SARS). COVID-19 is caused by a novel coronavirus. That means it's a new type that has not been seen in people before. This virus spreads [id number] through droplets from coughing and sneezing. It can also spread when you are close to someone who is infected. It is always good practice to clean high touch surfaces frequently and avoid touching your mouth, nose and eyes until you have washed your hands if you touched these areas. What can you do to protect yourself from coronavirus (COVID-19)? The best way to protect yourself from getting sick is to: Wear a face mask. Avoid areas where there is an outbreak. Avoid contact with people who may be infected. Wash your hands often with soap or alcohol-based hand sanitizers. Avoid crowds and try to stay at least 6 feet away from other people. Wash your hands often, especially after you cough or sneeze. Use soap and water, and scrub for at least 20 seconds. If soap and water aren't available, use an alcohol-based hand public relations. Call 911 anytime you think you may need emergency care. For example, call if: You have severe trouble breathing. (You can't talk at all.) You have constant chest pain or pressure. You are severely dizzy or lightheaded. You are confused or can't think clearly. Your face and lips have a blue color. You pass out (lose consciousness) or are very hard to wake up. Call your OB Provider now if you develop symptoms such as: Shortness of breath. Fever. Cough. If you need to get care, call ahead to the provider's office for instructions before you go. Make sure you wear a face mask, to prevent exposing other people to the virus. Where can you get the latest information? The following health organizations are tracking and studying this virus. Their websites contain the most up-to-date information. You'll also learn what to do if you think you may have been exposed to the virus. [place]. Centers for Disease Control and Prevention (CDC): The CDC provides updated news about the disease and travel advice. The website also tells you how to prevent the spread of infection. www.cdc.gov World Health Organization (WHO): WHO offers information about the virus outbreaks. WHO also has travel advice. www.who.int Current as of: December 23, 2019 Content Version: 12. [employer]. Care instructions adapted under license by your healthcare professional. If you have questions about a medical condition or this instruction, always ask your healthcare professional. [employer] disclaims any warranty or liability for your use of this information. General Recommendations for Routine Cleaning and Disinfection of Households Community members can practice routine cleaning of frequently touched surfaces (for example: tables, doorknobs, light switches, handles, desks, toilets, faucets, sinks) with household hard rock drill operator and EPA-registered disinfectants that are appropriate for the surface, following label instructions. Labels contain instructions for safe and effective use of the cleaning product including precautions you should take when applying the product, such as wearing gloves and making sure you have good ventilation during use of the product. These guidelines are focused on household settings and are meant for the general public. Cleaning refers to the removal of germs, dirt, and impurities from surfaces. Cleaning does not kill germs, but by removing them, it lowers their numbers and the risk of spreading infection. Disinfecting refers to using chemicals to kill germs on surfaces. This process does not necessarily clean dirty surfaces or remove germs, but by killing germs on a surface after cleaning, it can further lower the risk of spreading infection. General Recommendations for Cleaning and Disinfection of Households with People Isolated in Home Care - Confirmed or suspected COVID 19 Household members should educate themselves about COVID-19 symptoms and preventing the spread of COVID-19 in homes. Clean and disinfect high-touch surfaces daily in household common areas (e.g. tables, hard-backed chairs, doorknobs, light switches, remotes, handles, desks, toilets, sinks) o In the bedroom/bathroom dedicated for an ill person: consider reducing cleaning frequency to as-needed (e.g., soiled items and surfaces) to avoid unnecessary contact with the ill person. - As much as possible, an ill person should stay in a specific room and away from other people in their home. - The caregiver can provide personal cleaning supplies for an ill person's room and bathroom, unless the room is occupied by child or another person for whom such supplies would not be appropriate. These supplies include tissues, paper towels, hard rock drill operator and EPA-registered disinfectants (see list link at CDC website). - If a separate bathroom is not available, the bathroom should be cleaned and disinfected after each use by an ill person. If this is not possible, the caregiver should wait as long as practical after use by an ill person to clean and disinfect the high-touch surfaces. How to clean and disinfect: Hard Surfaces Wear disposable gloves when cleaning and disinfecting surfaces. Gloves should be discarded after each cleaning. If reusable gloves are used, those gloves should be dedicated for cleaning and disinfection of surfaces for COVID-19 and should not be used for other purposes. Consult the chalk molding machine operator's instructions for cleaning and disinfection products used. Clean hands immediately after gloves are removed. If surfaces are dirty, they should be cleaned using a detergent or soap and water prior to disinfection. For disinfection, diluted household bleach solutions, alcohol solutions with at least 70% alcohol, and most common EPA-registered household disinfectants should be effective. o Diluted household bleach solutions can be used if appropriate for the surface. Follow chalk molding machine operator's instructions for application and proper ventilation. Check to ensure the product is not past its expiration date. Never mix household bleach with ammonia or any other cleanser. Unexpired household bleach will be effective against coronaviruses when properly diluted. - Prepare a bleach solution by mixing: - 5 tablespoons (1/3rd cup) bleach per gallon of water or - 4 teaspoons bleach per quart of water o Products with EPA-approved emerging viral pathogens [facility] iconexternal icon are expected to be effective against COVID-19 based on data for harder to kill viruses. Follow the chalk molding machine operator's instructions for all cleaning and disinfection products (e.g., concentration, application method and contact time, etc.). Soft (porous) surfaces such as carpeted floor, rugs, and drapes Remove visible contamination if present and clean with appropriate hard rock drill operator indicated for use on these surfaces. After cleaning: Launder items as appropriate in accordance with the chalk molding machine operator's instructions. If possible, launder items using the warmest appropriate water setting for the items and dry items completely, or Clothing, towels, linens and other items that go in the laundry Wear disposable gloves when handling dirty laundry from an ill person and then discard after each use. If using reusable gloves, those gloves should be dedicated for cleaning and disinfection of surfaces for COVID-19 and should not be used for other household purposes. Clean hands immediately after gloves are removed. o If no gloves are used when handling dirty laundry, be sure to wash hands afterwards. o If possible, do not shake dirty laundry. This will minimize the possibility of dispersing virus through the air. o Launder items as appropriate in accordance with the chalk molding machine operator's instructions. If possible, launder items using the warmest appropriate water setting for the items and dry items completely. Dirty laundry from an ill person can be washed with other people's items. o Clean and disinfect clothes hampers according to guidance above for surfaces. If possible, consider placing a bag presser that is either disposable (can be thrown away) or can be laundered. [facility] has a list of EPA approved cleaning products on their website - https://www.cdc.gov/coronavirus/-ncov/community/home/cleaning-di sinfection.html https://www.[employer]Summits.[employer]/ Ecslq-Nndnwckrvpg-Vvqldmwv-Product s-List.pdf [employer] with delivery and shredder picker services: [employer]: Free shredder picker at locations Delivery is $12.95 a month Website - [employer] [place]: Settlement Agent $2.95 (1st order is free) Delivery is $14.95 Website - [employer] [place]: superintendent institution is free Delivery is $5.95 [employer] - [employer]: superintendent institution is $4.95 Delivery is $9.95 Website [employer]: superintendent institution is $4.95 Delivery is $9.95 [employer]: Can be ordered for delivery and shredder picker with [employer] Website - www.Her[employer]: Free deliver for first 3 orders of $35 or more Website [employer], [employer] Will deliver from [employer], [employer], [employer], and [employer]. Annual membership is $99 Monthly membership is $14 documented in this encounter [facility] Work Phone: 02-10-2021 History of Present illness Narrative Nutrition rescreen completed. Patient assigned a level 1. Images from the original note were not included. I reviewed and agree with the care provided by the resident during or immediately following the visit including the patient's medical history, the resident's findings in the physical exam, patient's diagnosis and treatment plan. Susu is doing well this morning with good pain control and light bleeding. Baby Paty has been discharge from the NICU and is back in the room with them! Will discharge today. DAY # 2 Susu Jackson, 35 y.o. This patient was seen & examined today. Her was complicated by: Patient Active Problem List Diagnosis Depression Anxiety Anal fistula Class 1 obesity Today she is doing well without any chief complaint. Her lochia is light. She denies chest pain, shortness of breath, headache and lightheadedness. She is ambulating well. She is tolerating solids. Vital Signs: Vitals: 02/08/21 0406 02/08/21 2205 02/09/21 0722 02/09/21 1949 BP: 130/86 (!) 104/53 107/72 106/70 Pulse: 99 100 99 96 Resp: 18 18 16 18 Temp: 98.1 F (36.7 C) 97.7 F (36.5 C) 97.1 F (36.2 C) 97.7 F (36.5 C) TempSrc: Oral Temporal Temporal Temporal SpO2: 99% 98% 99% 98% Weight: 240 lb (108.9 kg) Height: 5' 6 (1.676 m) Physical Exam: General: no apparent distress, alert and cooperative Affect: appropriate Lungs: No increased work of breathing, good air exchange Abdomen: abdomen soft, non-distended, non-tender Fundus: non-tender, normal size, firm, below umbilicus Extremities: no calf tenderness, non edematous Lab: Lab Results Component Value Date HGB 13.6 02/08/2021 Lab Results Component Value Date HCT 39.4 02/08/2021 O POS Antibody Screen: Antibody Screen Date Value Ref Range Status 02/08/2021 NEG NA Final Lab Results Component Value Date RUBELLAIGG IMMUNE 05/14/2018 LABOR DELIVERY ??? SCD's ONLY (labor through ambulation) SCD's PLUS Prophylactic Anticoagulation until discharge SCD's PLUS Prophylactic Anticoagulation for 6 weeks SCD's PLUS Therapeutic Anticoagulation for 6 weeks Vaginal Delivery [] BMI ? 40 kg/m2 Delivery All patients Vaginal Delivery [] BMI ? 40 kg/m2 AND [] Antepartum hospitalization ? 72 hours within the past month Delivery 1 Major Risk Factor: [] BMI ? 35 kg/m2 [] Low Risk Thrombophilia [] PPH+RBCs, IR, or operation [] Infection+Antibiotics [] Antepartum hospitalization ? 72 hours within the past month [] PMH: Sickle Cell, SLE, Cardiac Dz, Active IBD, Active Cancer, Nephrotic Syndrome OR 2 Minor Risk Factors: [] Multiple gestation [] Age > 40 [] PPH ? 1,000cc [] (+)FMH of VTE [] Smoker [] Preeclampsia [] BMI ? 40 kg/m2 AND [] Low Risk Thrombophilia OR ANY OF THE FOLLOWING: [] High Risk Thrombophilia without prior VTE [] Low Risk Thrombophilia with (+)FMH of VTE [] Any single prior VTE ANY OF THE FOLLOWING: [] Already on LMWH/UFH [] Multiple prior VTE [] High Risk Thrombophilia with prior VTE Low Risk Thrombophilia: FVL (heterozygous), Prothrombin (heterozygous), Protein C, Protein S High Risk Thrombophilia: FVL (homozygous), Prothrombin (homozygous), FVL+Prothrombin (heterozygous), Antithrombin III, APLS Assessment/Plan: Susu Jackson is PPD # 2 s/p 1. Care - Doing well, VSS - Female - Breast feeding - Contraception: Per private attending - Encourage ambulation - VTE Prophylaxis: Not Indicated 2. Depression - Lexapro 20mg daily - Moods stable 3. Hypothyroidism - Synthroid 50mcg daily 4. Disposition: Anticipate discharge today per private attending's discretion. Based on my clinical assessment, this patient is safe for self discharge (does not need transport by wheelchair) if she so chooses. Provider's Name: MD Xavier Ahumada, DO 02/10/2021, 5:58 AM Unable to assess pt , in NICU with . Images from the original note were not included. I reviewed and agree with the care provided by the resident during or immediately following the visit including the patient's medical history, the resident's findings in the physical exam, patient's diagnosis and treatment plan. Pt in the NICU while I was rounding today - will see her there. Continue current care. DAY # 1 Susu Jackson, 35 y.o. This patient was seen & examined today. Her was complicated by: Patient Active Problem List Diagnosis Depression Anxiety Anal fistula Class 1 obesity Today she is doing well without any chief complaint. Her lochia is moderate. She denies chest pain, shortness of breath, headache, lightheadedness, blurred vision, peripheral edema, palpitations and dry cough. She is ambulating well. She is tolerating solids. Vital Signs: Vitals: 02/08/21 0406 02/08/21 2205 BP: 130/86 (!) 104/53 Pulse: 99 100 Resp: 18 18 Temp: 98.1 F (36.7 C) 97.7 F (36.5 C) TempSrc: Oral Temporal SpO2: 99% 98% Weight: 240 lb (108.9 kg) Height: 5' 6 (1.676 m) Physical Exam: General: no apparent distress, alert and cooperative Affect: appropriate Lungs: No increased work of breathing, good air exchange Abdomen: abdomen soft, non-distended, non-tender Fundus: non-tender, normal size, firm, below umbilicus Extremities: no calf tenderness, non edematous Lab: Lab Results Component Value Date HGB 13.6 02/08/2021 Lab Results Component Value Date HCT 39.4 02/08/2021 O POS Antibody Screen: Antibody Screen Date Value Ref Range Status 02/08/2021 NEG NA Final Lab Results Component Value Date RUBELLAIGG IMMUNE 05/14/2018 LABOR DELIVERY ??? SCD's ONLY (labor through ambulation) SCD's PLUS Prophylactic Anticoagulation until discharge SCD's PLUS Prophylactic Anticoagulation for 6 weeks SCD's PLUS Therapeutic Anticoagulation for 6 weeks Vaginal Delivery [] BMI ? 40 kg/m2 Delivery All patients Vaginal Delivery [] BMI ? 40 kg/m2 AND [] Antepartum hospitalization ? 72 hours within the past month Delivery 1 Major Risk Factor: [] BMI ? 35 kg/m2 [] Low Risk Thrombophilia [] PPH+RBCs, IR, or operation [] Infection+Antibiotics [] Antepartum hospitalization ? 72 hours within the past month [] PMH: Sickle Cell, SLE, Cardiac Dz, Active IBD, Active Cancer, Nephrotic Syndrome OR 2 Minor Risk Factors: [] Multiple gestation [] Age > 40 [] PPH ? 1,000cc [] (+)FMH of VTE [] Smoker [] Preeclampsia [] BMI ? 40 kg/m2 AND [] Low Risk Thrombophilia OR ANY OF THE FOLLOWING: [] High Risk Thrombophilia without prior VTE [] Low Risk Thrombophilia with (+)FMH of VTE [] Any single prior VTE ANY OF THE FOLLOWING: [] Already on LMWH/UFH [] Multiple prior VTE [] High Risk Thrombophilia with prior VTE Low Risk Thrombophilia: FVL (heterozygous), Prothrombin (heterozygous), Protein C, Protein S High Risk Thrombophilia: FVL (homozygous), Prothrombin (homozygous), FVL+Prothrombin (heterozygous), Antithrombin III, APLS Assessment/Plan: Susu Jackson is PPD # 1 s/p 1. Care - Doing well, VSS - Female - Breast feeding - Contraception: Per private attending - Encourage ambulation - VTE Prophylaxis: Not Indicated 2. Depression - Continue Lexapro 20 mg daily - Mood remains stable 3. Hypothyroidism - Per review, TSH 1.58, Free T4 1.1 on 11/15 - Continue Synthroid 50 mcg daily 4. Disposition: Continue current care. Based on my clinical assessment, this patient is safe for self discharge (does not need transport by wheelchair) if she so chooses. Provider's Name: MD Cassy Ahumada MD 02/09/2021, 5:51 AM Pt taken to NICU to visit baby, pt remains with baby in NICU to breastfeed, PP RN given report, all belongings taken to PP room, pt will call for transport to PP Images from the original note were not included. Labor Progress Note Date: 02/08/2021 Time: 7:04 AM Subjective: Susu Jackson is a 35 y.o. female at 40w0d IOL-elective Pt getting more uncomfortable, getting epidural at this time. Cat I FHT prior. CTX q [address] Green will be taking care of patient today. Padmini Baker MD 02/08/2021 7:04 AM Cx:/-3 FHT: Cat I Colony: q 3min A/P: 1. IOL - Elective - Epidural in place, plan to AROM and to start pitocin at this time. Dr Green updated by phone. Cx:unchanged FHP:defer FHT: Cat I Colony:q2-3min A/P: 1. IOL-Elective. AROM at this time, meconium stained fluid. Patient aware NICU will be present at delivery. FHT Cat I with moderate variability and accelerations. OK to start pitocin per Dr. Green. Blood pressures normotensive. Cx:5/80/-2 FHT: Cat I Colony: q 2-3 min A/P: 1. IOL - Elective - Starting pitocin at this time. Pt now 9 cm per RN, FHT cat I. Contractions q 2 min. Pitocin off at this time for maternal discomfort, anesthesia called to see pt. Dr Green updated at this time en route to hospital. Cx:10100/+2 FHP:defer FHT: Cat II Colony:q3min A/P: 1. IOL-Elective. Patient complete and started pushing at 1439. FHT Cat II with intermittent late decelerations with pushing, overall moderate variability reassuring. Baby asynclitic to right side and likely larger that last delivery. Making slow change, Dr. Green in room managing pushing. Pit at 2cc/hr, continue to titrate per standard protocol. Blood pressures normotensive. Images from the original note were not included. Department of Obstetrics and Gynecology Labor and Delivery Triage Note CHIEF COMPLAINT: Contractions HISTORY OF PRESENT ILLNESS: The patient is a 35 y.o. 40w0d. OB History 4 Para 1 Term 1 AB 2 Living 1 SAB 1 TAB Ectopic Molar Multiple Live Births 1 Obstetric Comments 5 weeks Having no growth Given misoprostel to miscarriage Estimated Due Date: Estimated Date of Delivery: 02/08/21 REVIEW OF SYSTEMS: Pertinent items are noted in HPI. APPEARANCE: Pain: no PHYSICAL EXAM: Vital Signs: VS wnl-reviewed/Respirations normal effort Vitals: 02/08/21 0406 BP: 130/86 Pulse: 99 Resp: 18 Temp: 98.1 F (36.7 C) TempSrc: Oral SpO2: 99% Weight: 240 lb (108.9 kg) Height: 5' 6 (1.676 m) heart rate: Category I Cervix: 4/60/-3 Membranes: Intact BSUS: vertex presentation IMPRESSION: IOL-elective DISCUSSED WITH PNC PROVIDER: Dr. Johnson DISPOSITION: Admit to L&D Associated attestation - Elizabet Bey MD - 02/08/2021 6:25 AM EDT I reviewed and agree with the care provided by the resident/CNM during the visit including the patient's medical history, the resident's findings in the physical exam, patient's diagnosis and treatment plan. documented in this encounter [facility] Work Phone: 02-10-2021 Note Obstetric Discharge Summary Susu Jackson 02/08/2021 Reasons for Admission on 02/08/2021 3:45 AM 40 weeks gestation of [Z3A.40] No comment available Induction of Labor Surgical Operations & Procedures: Delivery Type: spontaneous vaginal Laceration(s): 2nd degree midline perineal Delivery Complications: meconium at Pertinent Findings & Procedures: Information for the patient's : Laurie Jackson [[id number]] female Weight: 7 lb 15 oz (3.6 kg) Apgars: Information for the patient's : Laurie Jackson [[id number]] One Minute : 5 Five Minute : 7 course normal. Blood Type/Rh: No results found for: ABORH Antibody Screen: Antibody Screen Date Value Ref Range Status 02/08/2021 NEG NA Final Rubella: Lab Results Component Value Date RUBELLAIGG IMMUNE 05/14/2018 Discharge to: Home Contraception: will discuss at check : yes Meds: Susu Jackson Home Medication Instructions BELIA:[id number] Printed on:02/10/21 1028 Medication Information escitalopram (LEXAPRO) 20 MG tablet Take 1 tablet by mouth daily Vit-Fe Fumarate-FA ( VITAMIN) 27-0.8 MG TABS Take 1 tablet by mouth SYNTHROID 50 MCG tablet TAKE ONE TABLET BY MOUTH EVERY DAY Activity: activity as tolerated and no lifting, sexual intercourse, or Strenuous exercise for 6 weeks Diet: regular diet Follow up: [address] Green Condition on discharge: good and stable Discharge date: 02/10/2021 40 weeks gestation of [Z3A.40] Patient Active Problem List Diagnosis ? Depression ? Anxiety ? Anal fistula ? Class 1 obesity [facility] on 02/10/2021 at 10:28 AM Comments: Home care, Follow-up care and control were reviewed. Signs and symptoms of mastitis and Post Depression were reviewed. The patient is to notify her physician if any of these occur. [facility] Evaluation note Diagnosis Exudative pharyngitis- Primary Acute pharyngitis Sore throat Acute pharyngitis Nasal congestion Other diseases of nasal cavity and sinuses documented in this encounter [facility] note* Diagnosis Other depression- Primary BMI 31.0-31.9,adult Class 1 obesity without serious comorbidity with body mass index (BMI) of 31.0 to 31.9 in adult, unspecified obesity type [facility] Diagnosis Annual physical exam- Primary Routine general medical examination at a health care facility Recurrent major depressive disorder, in full remission (HCC) Hypercholesterolemia Pure hypercholesterolemia Anxiety Anxiety state, unspecified Encounter for screening for diabetes mellitus [facility] Diagnosis Recurrent major depressive disorder, in full remission (HCC)- Primary Anxiety Anxiety state, unspecified Hypercholesterolemia Pure hypercholesterolemia [facility] Diagnosis Exudative tonsillitis- Primary Viral URI Acute upper respiratory infections of unspecified site [facility] Diagnosis Bacterial conjunctivitis of left eye- Primary [facility] Diagnosis Annual physical exam- Primary Routine general medical examination at a health care facility Recurrent major depressive disorder, in full remission (HCC) Anxiety Anxiety state, unspecified Hypercholesterolemia Pure hypercholesterolemia Class 1 obesity Screening for diabetes mellitus [facility] Diagnosis Recurrent major depressive disorder, in full remission (HCC)- Primary Anxiety Anxiety state, unspecified Hypercholesterolemia Pure hypercholesterolemia [facility] Diagnosis Recurrent major depressive disorder, in full remission (HCC)- Primary Anxiety Anxiety state, unspecified Hypercholesterolemia Pure hypercholesterolemia Annual physical exam- Primary Routine general medical examination at a health care facility Recurrent major depressive disorder, in full remission (HCC) Hypercholesterolemia Pure hypercholesterolemia Anxiety Anxiety state, unspecified Encounter for screening for diabetes mellitus Recurrent major depressive disorder, in full remission (HCC)- Primary Anxiety Anxiety state, unspecified Hypercholesterolemia Pure hypercholesterolemia Annual physical exam- Primary Routine general medical examination at a health care facility Recurrent major depressive disorder, in full remission (HCC) Anxiety Anxiety state, unspecified Hypercholesterolemia Pure hypercholesterolemia Class 1 obesity Screening for diabetes mellitus Recurrent major depressive disorder, in full remission (HCC)- Primary Anxiety Anxiety state, unspecified Hypercholesterolemia Pure hypercholesterolemia documented in this encounter [facility] Health Summary Purpose Family History No Family History Records FoundNo Family History Records FoundNo Family History Records FoundNo Family History Records FoundNo Family History Records Found Advance Directives No Advanced Directives Records FoundDocuments on File Type Date Recorded 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 Advance Directives and Living Will 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 Latest Code Status on File Code Status Date Activated Date Inactivated Comments Full Code 12/18/2018 10:40 PM 12/20/2018 4:49 PM Full Code 12/17/2018 10:08 AM 12/17/2018 11:16 AM Full Code 12/17/2018 10:02 AM 12/17/2018 10:08 AM Full Code 01/31/2018 8:37 AM 01/31/2018 2:49 PM Full Code 01/31/2018 8:37 AM 01/31/2018 8:37 AM Latest Code Status on File Code Status Date Activated Date Inactivated Comments Full Code 12/04/2019 10:16 AM Full Code 12/18/2018 10:40 PM 12/20/2018 4:49 PM Documents on File Type Date Recorded 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 Please catherine the last dose taken (date and time ) on your Daily Medications List provided in your After Visit Summary. Please bring a photo ID and insurance information Do NOT take the following medications on the morning of surgery: NONE TAKE the following medications the morning of your surgery: NONE You may take your prescription pain medications. You may take Tylenol (Acetaminophen) if needed forpain. No Motrin, Ibuprofen, or Advil 24 hours prior to surgery, or longer if instructed by your surgeon. No Aleve or Naprosyn 3 days prior to surgery, or longer if instructed by your surgeon. If you are on BLOOD THINNERS or ASPIRIN Additional instructions: NONE You will receive a reminder call the day before surgery with your Same Day Surgery arrival time. If you have specific questions, please call your surgeon. * Attachments The following attachments cannot be sent through Care Everywhere. * Anal Fistulotomy: Pre-op (Czech) documented in this encounter* Instructions* Johanne Mcgee MD - 12/04/2019 POST-OPERATIVE INSTRUCTIONS FOR ANORECTAL SURGERY [facility] PA[facility]ICATION - A pain medication prescription will be provided. However, Advil (ibuprofen) is often satisfactory a few days after surgery and is less constipating. METAMUCIL or similar fiber supplement is recommended on a daily basis for 2 weeks. COLACE or MIRALAX is recommended on a daily basis for 2 weeks to avoid hard bowel movements. SPECIAL INSTRUCTIONS Remove the external gauze later in the day or before your first shower or bath. On occasion a dissolvable foam (Gelfoam ) or gauze (Surgicel ) is used in the anal canal. This material will pass spontaneously often turning brown in color. Flush it down the toilet. Avoiding straining or sitting on the toilet for long periods of time or heavy lifting especially the first day after surgery. The increased pressure can aggravate swelling and bleeding. Slight bleeding and drainage as usual after this procedure. Report excessive bleeding or passage ofclots to the office. Use non-cotton gauze, sanitary pads or minipads as needed for bleeding and drainage. Keep perianal area clean. Make-up cleansing pads may be more comfortable than wet toilet paper which tends to crumble. Unscented and alcohol free baby wipes are also useful. Warm showers or baths are recommended 2 to 3 times per day or as needed in the post- operative period for discomfort. Avoid a hot shower immediately after surgery since the sedation used during procedure may precipitate light-headedness or fainting. Resume a regular diet. There are no dietary restrictions except for popcorn (for two weeks) and forthose food that are known to cause you diarrhea. Purchase a hand-held shower sprayer to keep the tissues clean in the perineum. A Rinse- Jose can be purchased at the hardware store. Since pain medications can cause constipation, a fiber product (such as Metamucil or Citrucel) is recommended after surgery for at least two weeks. Report severe constipation or diarrhea to the office.Contact the office immediately if you are unable to urinate or if you have fever or chills. Do Not Use enemas or suppositories after surgery unless specifically instructed by the office. Contact the office the following business day after surgery to inform us of your progress and to make your follow-up appointment. Do not drive for 24 hours or while you are taking prescription pain medication. A small amount of bloody drainage can occur for several days and sometime weeks depending on the nature and severity of the surgical procedure Clem Tran MD PLEASE CALL [phone] if you have any questions documented in this encounter History of Present Illness * Mel Tidwell RN - 12/04/2019 1:20 PM EDT Discharge information given to the patient. Patient and family verbalized understanding of information. All questions were answered before discharge. Patient ambulated, denies dizziness or nausea. Tolerating PO fluids and crackers. Vital signs are stable. Patient has changed and is being discharged home in a wheelchair with valuables. documented in this encounter Assessments Diagnosis Anal fistula Reason for Referral Specialty Diagnoses / Procedures Referred By Delma hercules Referred To Contact Ent - Otolaryngology Diagnoses Exudative tonsillitis Procedures CONSULT TO ENT OFFICE/OUTPATIENT [facility] 60 MINUTES Octavio Schaeffer APRN.[employer] [address] [place] [address] Referral ID Status Reason Start Date Expiration Date Visits Requested Visits Authorized [id number] Authorized PCP Requested Referral 10/30/2023 10/29/2024 1 1 Additional Source Comments INFORMATION SOURCE (unrecogn ized section and content) DATE CREATED AUTHOR 03/27/2018 [facility] DATE CREATED AUTHOR AUTHOR'S ORGANIZ ATION 02/18/2021 [facility] DATE CREATED AUTHOR AUTHOR'S ORGANIZ ATION 08/10/2023 [facility] DATE CREATED AUTHOR AUTHOR'S ORGANIZ ATION 11/01/2023 [facility] DATE CREATED AUTHOR AUTHOR'S ORGANIZ ATION 10/09/2024 [facility] Reason for Visit (unrecogniz ed section and content) Reason Comments Contractions Reason Comments Sore Throat Has white patches, n o fevers Reason Comments Weight Management NEW NSURG Reason Comments Annual Exam Health Maintenance Blood Work Hep b vaccine- refus eMmr vaccine- done as child Reason Comments Anxiety Depression Hyperlipidemia Medication Check 6 month Health Maintenance Hiv/hep c screening- [id number] covid vaccine- not done Reason Comments Sore Throat All symptoms on the right side, Reason Onset Date Comments Eye Problem 02/05/2024 Reason Comments Eye Drainage Thinks it is pink ey e daughter recently had pink eye. Started Saturday. Reason Comments Annual Exam Health Maintenance HIV/HEP C-declinedDM SCREEN-todayHEP B VAC-todayCOVID VAC-completedPHQ/DWL-gwcbwgeupFBE-keaxbydjd [facility] Reason Comments Anxiety Depression Hyperlipidemia Medication Check Health Maintenance Hep c/hiv- refuseVar icella- had chicken pox Pap test- see Dr Priscila Morales in [place] Covid 3- not doneFlu vaccine- agree Reason Comments Anxiety Depression Hyperlipidemia Medication Check 6 month Health Maintenance Pap- 01/[address] Priscila [facility] Letter for School/Work Stating pt is ok to work Ordered Prescriptions (unrec ognized section and content) Prescription Sig Dispensed Refills Start Date End Da te docusate sodium (COLACE, DULCOLAX) 100 MG CAPS Take 100 mg by mouth 2 times daily as needed for Constipation 60 capsule 1 02/10/2021 ibuprofen (ADVIL;MOTRIN) 600 MG tablet Take 1 tablet by mouth every 6 hours as needed for Pain 60 tablet 1 02/10/2021 acetaminophen (TYLENOL) 325 MG tablet Take 2 tablets by mouth every 6 hours as needed for Pain 60 tablet 1 02/10/2021 Scheduled Active and Recently Administ ered Medications (unrecognized section and content) Medication Order 02/08/2021 02/09/2021 02/10/2021 acetaminophen (TYLENOL) tablet 650 mg 650 mg, Oral, EVERY 6 HOURS, First dose on Sat02/08/21 at 2245, Maximum dose of acetaminophen is 4000 mg from all sources in 24 hours., 224 (Not Given - Provider: Asia lee Oca, RN - Reason: Order parameters not met - Comment: received Tylenol at 1999) 0154 (Given - Provider: Asia lee Oca, RN)1436 (Given - Provider: Ksenia Ott RN)1645 (Not Given - Provider: Ksenia Ott RN - Reason: Order parameters not met)2028 (Given - Provider: Shannan Montoya RN) 0230 (Given - Provider: Shannan Montoya RN)0848 (Given - Provider: Radha Stover RN)1045 (Due)1657 (Given - Provider: Radha Stover RN)2244 (Given - Provider: Venecia Trevizo RN) escitalopram (LEXAPRO) tablet 20 mg 20 mg, Oral, DAILY, First dose on Sat02/08/21 at 0900 1436 (Given - Provider: Ksenia Ott RN - Comment: pt was off florr in nicu) 0707 (Given - Provider: Charlee Russo RN) ibuprofen (ADVIL;MOTRIN) tablet 600 mg (COMPLETED) 600 mg, Oral, ONCE, On Sat02/08/21 at 0430, For 1 dose, IMMEDIATE . Do not crush or chew. DO NOT GIVE IBUPROFEN PRIOR TO DELIVERY., Post Delivery 0430 (Due)1999 (Given - Provider: Kalee Gutierrez, REILLY) ibuprofen (ADVIL;MOTRIN) tablet 600 mg 600 mg, Oral, EVERY 6 HOURS, First dose on Sat02/08/21 at 2245, Do not crush or chew., 224 (Not Given - Provider: Asia lee Oca, RN - Reason: Order parameters not met - Comment: pt received motrin at 1999) 0154 (Given - Provider: Asia lee Oca, RN)1435 (Given - Provider: Ksenia L. Eyler, RN)1645 (Not Given - Provider: Ksenia Ott RN - Reason: Order parameters not met)2030 (Given - Provider: Shannan Montoya, RN) 0230 (Given - Provider: Shannan Montoya RN)0849 (Given - Provider: Radha Stover, RN)1657 (Given - Provider: Radha Stover, RN)2244 (Given - Provider: Venecia Trevizo, REILLY) levothyroxine (SYNTHROID) tablet 50 mcg 50 mcg, Oral, DAILY, First dose on Sat02/08/21 at 0600, Tube feeding (TF) interaction, obtain physician order to manage, recommend holding TF for 30 minutes before and after dose. 0613 (Given - Provider: Leonela Lynn RN) 0614 (Given - Provider: Asia lee Oca, RN) 0707 (Given - Provider: Charlee Russo RN) penicillin G potassium 5 Million Units in dextrose 5 % 100 mL IVPB (mini-bag) (COMPLETED) 5 Million Units, Intravenous, ONCE, 1 dose, On Sat02/08/21 at 0430, Labor and Delivery 0520 (New Bag - Provider: Leonela Lynn RN)0550 (Due: Stopped - Provider: Leonela Lynn RN) penicillin G potassium in d5w IVPB 2.5 Million Units (CANCELED) 2.5 Million Units, Intravenous, EVERY 4 HOURS, First dose on Sat02/08/21 at 0815, Until Discontinued, Begin 4 hours after loading dose. Continue until delivery., Labor and Delivery 0920 (New Bag - Provider: Ra Bey RN)0950 (Due: Stopped - Provider: Ra Bey RN)1255 (New Bag - Provider: Charlene Gordon, REILLY)1325 (Due: Stopped - Provider: Charlene Gordon, REILLY)1615 (Due)2014 (Due) Continuous Medication Order 02/08/2021 02/09/2021 02/10/2021 lactated ringers infusion (CANCELED) Intravenous, at 125 mL/hr, CONTINUOUS, Starting on Sat02/08/21 at 0430, Labor and Delivery 0510 (New Bag - Provider: Leonela N. Sardis, RN) oxytocin (PITOCIN) 10 unit bolus from the bag 500 mL (30 Units), Intravenous, Administer over 75 Minutes, TITRATED, Starting on Sat02/08/21 at 1900, For Immediate Post Use Only. Give after delivery of placenta. Bag 1 of 2: Bolus for bag to infuse at 999 ml/hour for 15 minutes (15 units in 250cc). After initial bolus then decrease rate to 250cc/hr for 1 hour. Then discontinue., Multiphase Phase of Care 1900 (Due) oxytoxin (PITOCIN) 30 units in 500 mL infusion (CANCELED) 1-20 mike-units/min (1-20 mL/hr), Intravenous, at 1-20 mL/hr, CONTINUOUS, Starting on Sat02/08/21 at 0515, Begin infusion at 1 mike-unit/min (1 mike-unit per min = 1 mL per hour) and increase by 1 mike-unit/min after 30 minutes. Then increase by 2 mike-units/min as needed, no faster than every 30 minutes, until labor is achieved. Labor is defined as contractions every 2-3 minutes with cervical changes or Bee units (MVU) greater than 200 in a 10-minute window. Maximum infusion rate: 20 mike-unit/min. Contact provider if maximum rate does not achieve desired response. Provider may order alternative titration goal or other clinically appropriate goal of titration rate (s). Smaller titration increments of 1 mike-units/min, not faster than every 30 minutes, may be used when approaching therapeutic goal. 1211 (New Bag - Provider: Charlene Gordon RN) PRN Medication Order 02/08/2021 02/09/2021 02/10/2021 acetaminophen (TYLENOL) tablet 650 mg (CANCELED) 650 mg, Oral, EVERY 4 HOURS PRN, Pain Mild (1-3), Fever, Fever >100.5 F (38 C), Starting on Sat02/08/21 at 0403, Maximum dose of acetaminophen is 4000 mg from all sources in 24 hours., Labor and Delivery 1999 (Given - Provider: Kalee Gutierrez RN) benzocaine-menthol (DERMOPLAST) 20-0.5 % spray Topical, PRN, Pain, Starting on Sat02/08/21 at 2226, Apply to perineal area. Patient is capable and may self administer at bedside., 0155 (Given - Provider: Asia lee Oca, REILLY) docusate sodium (COLACE) capsule 100 mg 100 mg, Oral, 2 TIMES DAILY PRN, Constipation, Starting on Sat02/08/21 at 2226, Do not crush or break., 0849 (Given - Provider: Radha Stover RN) lansinoh lanolin ointment Topical, PRN, Dry Skin, nipple discomfort, Starting on Sat02/08/21 at 2226, ondansetron (ZOFRAN) injection 4 mg 4 mg, Intravenous, EVERY 6 HOURS PRN, Nausea, Starting on Sat02/08/21 at 2226, oxytoxin (PITOCIN) 30 units in 500 mL infusion () 125 mike-units/min (125 mL/hr), Intravenous, at 125 mL/hr, CONTINUOUS PRN, Bleeding, Starting on Sat02/08/21 at 1834, For 4 hours, For Immediate Post Use Only. Give after delivery of placenta and initial 30 unit bolus. Bag 2 of 2: 125cc/hr (125 mu/min) for an additional infusion of 500cc (30 units)., Multiphase Phase of Care 183 (New Bag - Provider: Ra Bey RN) simethicone (MYLICON) chewable tablet 80 mg 80 mg, Oral, EVERY 6 HOURS PRN, Cramping, Flatulence, Starting on Sat02/08/21 at 2226, witch veronica-glycerin (TUCKS) pad Topical, PRN, Hemorrhoids, For perineal pain or discomfort, Starting on Sat02/08/21 at 2226, Apply to perineal area. Patient is capable and may self administer at bedside., 0155 (Given - Provider: Asia lee Oca, RN) Source Comments (unrecognize d section and content) In the event this informatio n is protected by the Federal Confidentiality of Alcohol and Drug Abuse Patient Records regulations: The Federal rules restrict any use of the information to criminally investigate or prosecute any alcohol or drug abuse patient.[facility] the event this information is protected by the Federal Confidentiality of Alcohol and Drug Abuse Patient Records regulations: The Federal rules restrict any use of the information to criminally investigate or prosecute any alcohol or drug abuse patient.[facility] Care Teams (unrecognized sec tion and content) [employer] Relationship Specialty Start Date End Date Polo Ryan MD [address] [place] [id number] PCP - General 06/13/15 [employer] Relationship Specialty Start Date End Date Polo Ryan MD [address] [place] [id number] PCP - General 06/13/15 [employer] Relationship Specialty Start Date End Date Polo Ryan MD [address] [place] [phone] PCP - General 06/13/15 [employer] Relationship Specialty Start Date End Date Polo Ryan MD [address] [place] [id number] PCP - General 06/13/15 [employer] Relationship Specialty Start Date End Date Polo Ryan MD [address] [place] [id number] PCP - General 06/13/15 [employer] Relationship Specialty Start Date End Date Polo Ryan MD [address] [place] [id number] PCP - General 06/13/15 [employer] Relationship Specialty Start Date End Date Polo Ryan MD [address] [place] [address] [phone] PCP - General 06/13/15 [employer] Relationship Specialty Start Date End Date Polo Ryan MD [address] [place] [address] [phone] PCP [facility] 06/13/15 FOR RECORDS PERTAINING TO PATIENTS WHO ARE OR HAVE BEEN ENROLLED IN A CHEMICAL DEPENDENCY/SUBSTANCEABUSE PROGRAM, SOME INFORMATION MAY BE OMITTED. This clinical summary was aggregated from multiple sources. Caution should be exercised in using it in the provision of clinical care. This summary normalizes information from multiple sources, and as a consequence, information in this document may materially change the coding, format and clinical context of patient data. In addition, data may be omitted in some cases. CLINICAL DECISIONS SHOULD BE BASED ON THE PRIMARY CLINICAL RECORDS. [facility]. provides no warranty or guarantee of the accuracy or completeness of information in this document.
== END | disposition home or self-care (01) ==
PROVIDERS: PCP Family Medicine
DX: N63.21 Unspecified lump in the left breast, upper outer quadrant (principal)
CPT/HCPCS: 76642; 77062; 77066; G0279